=== PATIENT | female | born 1975 | race Caucasian/White ===

== ENCOUNTER 2017-01-09 14:01 | Observation (INO) ==
--- NOTE | 2017-01-09 14:47 | Emergency Department Note ---
Disposition Clinical Impression: Elevated LFTs, Pancytopenia, Alcohol abuse Pancreatitis Qualifiers: Chronicity: acute Pancreatitis type: alcohol induced Acute pancreatitis complication: unspecified Qualified Code(s): K85.20 - Alcohol induced acute pancreatitis without necrosis or infection Abdominal pain Qualifiers: Abdominal location: unspecified location Qualified Code(s): R10.9 - Unspecified abdominal pain Nausea & vomiting Qualifiers: Vomiting type: unspecified Vomiting Intractability: unspecified Qualified Code( s): R11.2 - Nausea with vomiting, unspecified Disposition: Admitted As Inpatient Condition: Good Time of Disposition: 18:19 Abdominal Pain HPI - General Chief Complaint: ED Abdominal Pain Stated Complaint: pancreatitis Time Seen by Provider: 01/09/17 14:11 Source: patient Mode of arrival: ambulatory Limitations: no limitations Nursing Notes Reviewed: Yes Vital Signs Reviewed: Yes - History of Present Illness HPI Narrative: 41-year-old female history of hepatitis C and pancreatitis resents the ED with abdominal pain. This is been ongoing for the past 3 days worse today. She describes a sharp stabbing sensation right upper quadrant diffuse doll pain in the epigastric region. Stasis feels just like her pancreatitis in the past. She reports drinking a large amount of alcohol yesterday this is what typically sets it off. Reports multiple admissions for pancreatitis in the past which leads to short periods of sobriety and then right back to drinking. She reports nausea with a mixture of dry heaving and nonbloody emesis. Also reports nonbloody diarrhea that has been ongoing for past few days. Denies any fever, cough, chest pain or shortness of breath. Dr. Deng is her primary care physician. Reports a history of appendectomy, hysterectomy and . Pt Subjective Complaint: abdominal pain Pain Scale: 9 - Related Data Home Medications Medication Instructions Recorded Confirmed Buprenorphine HCl [Subutex] 12 mg SL DAILY 07/04/15 01/09/17 Albuterol Sulfate [Albuterol 1 puff IH Q4-6H PRN 01/09/17 01/09/17 Inhaler] HydrOXYzine 10 mg PO HS 01/09/17 01/09/17 Levothyroxine [Synthroid] 125 mcg PO DAILY 01/09/17 01/09/17 Previous Rx's Medication Instructions Recorded Pantoprazole Sodium [Protonix] 20 mg PO DAILY #7 tab 12/12/15 Folic Acid 1 mg PO DAILY #15 tablet 02/08/16 Promethazine [Phenergan] 25 mg PO Q6HR PRN #16 tablet 10/06/16 Allergies Allergy/AdvReac Type Severity Reaction Status Date / Time No Known Allergies Allergy Verified 01/09/17 14:09 All systems ED: reviewed and negative except as stated. Constitutional: Denies: fever, chills Cardiovascular: Denies: chest pain Respiratory: Denies: cough, dyspnea Gastrointestinal: Reports: abdominal pain, nausea, vomiting, diarrhea. Denies: melena, hematochezia Genitourinary: Denies: urgency, dysuria Musculoskeletal: Denies: back pain Integumentary: Denies: rash, abrasion Abdominal Pain PMH - Past Medical History Medical history: Reports: thyroid disease, other Female Surgical History: Reports: appendectomy, , hysterectomy, other MANDOLIN REPAIRER history: Reports: no MANDOLIN REPAIRER history, bilateral tubal ligation Psychiatric history: Reports: other - Social History Smoking status: Current every day smoker Alcohol use: Reports: heavy, recent Drug use: Reports: none, prescription drug abuse, other Physical Exam - General Limitations: no limitations General appearance: alert, in no apparent distress - Head Head exam: atraumatic, normocephalic, normal inspection - Eye Eye exam: Present: normal appearance, PERRL, EOMI - ENT ENT exam: normal exam, normal oropharynx, mucous membranes dry - Neck Neck exam: Present: normal inspection, full ROM, trachea midline - Chest Chest inspection: Present: normal inspection, symmetric chest wall rise - Respiratory Respiratory exam: Present: normal lung sounds bilaterally. Absent: respiratory distress, wheezes - Cardiovascular Cardiovascular exam: Present: regular rate, normal rhythm, normal heart sounds. Absent: systolic murmur, diastolic murmur - Abdominal Exam Abdominal exam: Present: soft, tenderness, normal bowel sounds. Absent: Non- Tender, distention, guarding, rebound, rigidity, Mathew's sign, Rovsing's sign, tenderness at McBurney's Point Abdominal tenderness: Present: RUQ, epigastrium, diffuse - Extremities Exam Extremities exam: Present: normal inspection, full ROM, normal capillary refill. Absent: tenderness, pedal edema, calf tenderness - Back Exam Back exam: Present: normal inspection, full ROM. Absent: tenderness, CVA tenderness (R), CVA tenderness (L), vertebral tenderness - Neurological Exam Neurological exam: Present: alert, oriented X3 - Psychiatric Psychiatric exam: Present: normal affect, normal mood - Skin Skin exam: Present: warm, dry, intact, normal color Course Course Narrative: 13-year-old female history of chronic pancreatitis presents with epigastric abdominal pain. This is been going on for a few days worsen after drinking alcohol yesterday. Patients afebrile. States feels just like her pancreatitis in the past. She has mild tenderness to the epigastric and right upper quadrant. Abdomen is otherwise often nondistended. Mucosal membranes appear dry. Will work her up for pancreatitis and treat her pain and IV pain medications. - Reevaluation(s) Reevaluation #1: IV was placed with ultrasound and given 1L of fluids and 8 mg of morphine. Labs reviewed. She has pancytopenia. Her WBC is chronically low. Lipase is not impressive at 47 with her history of chronic pancreatitis. However her LFTs are extremely elevated and last time she was admitted. AST 900 AND alt 400 which is consistent with an alcohol hepatitis. She reports a history of delirium tremens on previous attempts to detox. If patient continues to have pain may require admission. Time: 16:54 Reevaluation #2: Ordered additional liter of fluid for total of 3L. After additional 6 mg Morphine pain is not well controlled. Will admit for pancytopenia, elevation of LFTs and possible pancreatitis. Patient is in agreement with plan. Time: 17:20 - Consultations Consultation #1: Spoke with BRANDON Bush, recommends that she needs evaluation with a MRCP while in the hospital Time: 18:19 Consultation #2: Spoke with on-call hospitalist brian Zuniga to admit for pancytopenia, elevated LFTs, pancreatitis, abdominal pain. No further orders at this time Time: 18:19 Vital Signs Temperature 98.4 F 01/09/17 14:04 Pulse Rate 73 01/09/17 14:04 Respiratory Rate 16 01/09/17 14:04 Blood Pressure 159/102 01/09/17 14:04 O2 Sat by Pulse Oximetry 100 01/09/17 14:04 Temperature 97.4 F L 01/09/17 20:56 Pulse Rate 65 01/09/17 20:56 Respiratory Rate 18 01/09/17 20:56 Blood Pressure 135/91 01/09/17 20:56 O2 Sat by Pulse Oximetry 95 01/09/17 20:56 Oxygen Delivery Oxygen Delivery Room Air Abdominal Pain - Medical Records Medical records reviewed: Yes I reviewed the patient's medical records. - Lab Data Lab results reviewed: Yes I reviewed the patient's lab results. Result diagrams: 01/09/17 15:20 01/09/17 15:20 Lab Results 01/09/17 01/09/17 01/09/17 Range/Units 14:30 15:20 15:20 WBC 3.3 L (4.3-11.1) K/mcL RBC 3.52 L (3.82-4.97) M/mcL Hgb 10.4 L (11.5-15.4) g/dL Hct 31.3 L (35.3-44.9) % MCV 88.9 (83.0-100.0) fL MCH 29.5 (28.0-33.3) pg MCHC 33.2 (31.6-35.5) g/dL RDW 19.9 H (11.5-14.5) % Plt Count 59 L (140-400) K/mcL MPV 9.5 (9.4-12.4) fL Immature Gran % 0.3 (0-4) % Seg Neutrophils % 62.9 % Lymphocytes % 28.0 % Monocytes % 5.5 % Eosinophils % 2.4 % Basophils % 0.9 % Neutrophils # 2.1 (1.6-8.9) K/mcL Lymphocytes # 0.9 (0.6-4.6) K/mcL Monocytes # 0.2 (0.0-1.3) K/mcL Eosinophils # 0.1 (0.0-0.6) K/mcL Basophils # 0.0 (0.0-0.2) K/mcL Platelet Estimate Decreased L (Normal) Immature Plt Fraction 4.1 (1.1-6.1) % Polychromasia 1+ A (Not Present) Poikilocytosis 1+ A (Not Present) Anisocytosis 1+ A (Not Present) Sodium 135 L (136-145) mEq/L Potassium 4.0 (3.5-4.5) mEq/L Chloride 98 (98-109) mEq/L Carbon Dioxide 27 (19-29) mEq/L BUN 6 L (7-20) mg/dL Creatinine 0.94 (0.57-1.11) mg/dL Est GFR ( Amer) > 60 (> 60) Est GFR (Non-Af Amer) > 60 (> 60) BUN/Creatinine Ratio 6 (6-26) Glucose 89 (70-99) mg/dL Calculated Osmolality 277 L (280-300) Calcium 8.6 (8.6-10.8) mg/dL Total Bilirubin 0.9 (0.2-1.2) mg/dL Direct Bilirubin 0.4 (0.0-0.5) mg/dL Indirect Bilirubin 0.5 (0.0-1.2) mg/dL AST 905 H (5-34) Units/L ALT 424 H (0-55) Units/L Alkaline Phosphatase 100 (38-126) Units/L Serum Total Protein 7.4 (6.0-8.3) g/dL Albumin 3.7 (3.5-5.0) g/dL Globulin 3.7 H (2.4-3.5) g/dL Albumin/Globulin Ratio 1.0 L (1.1-2.2) Amylase 47 (25-125) Units/L Lipase 47 (8-78) Units/L Urine Color Yellow (Yellow) Urine Clarity Clear (Clear) Urine pH 6.5 (5.0-8.0) pH Units Ur Specific Britt 1.005 L (1.010-1.025) Urine Protein Negative (Neg-Trace) mg/dL Urine Glucose (UA) Normal (Normal) mg/dL Urine Ketones Negative (Negative) mg/dL Urine Blood Negative (Negative) Urine Nitrite Negative (Negative) Urine Bilirubin Negative (Negative) Urine Urobilinogen Normal (Normal) mg/dL Ur Leukocyte Esterase Negative (Negative) Ur Culture Indicated? NO (NO) - Radiology Data Radiology results reviewed: Yes I reviewed the patient's radiology results. Chest X-Ray 01/09/17 15:20 IMPRESSION: No acute cardiopulmonary process. D/ / 01/09/2017 15:42:20 Leola Esposito MD / padma Interpreting Provider: Leola Esposito MD
[2017-01-09 15:28] LABS: Hematocrit 31.3 % (35.3-44.9); Hemoglobin 10.4 g/dL (11.5-15.4); Immature Platelets 4.1 % (1.1-6.1); Mean Corpuscular HGB Conc 33.2 g/dL (31.6-35.5); Mean Corpuscular Hemoglobin 29.5 pg (28.0-33.3); Mean Corpuscular Volume 88.9 fL (83.0-100.0); Mean Platelet Volume 9.5 fL (9.4-12.4); Red Blood Count 3.52 M/mcL (3.82-4.97); Red Cell Distribution Width 19.9 % (11.5-14.5); Segmented Neutrophils % 62.9 %
[2017-01-09 15:29] LABS: Basophils % 0.9 %; Eosinophils # 0.1 K/mcL (0.0-0.6); Eosinophils % 2.4 %; Immature Granulocytes % 0.3 % (0-4); Lymphocytes # 0.9 K/mcL (0.6-4.6); Monocytes # 0.2 K/mcL (0.0-1.3); Monocytes % 5.5 %; Neutrophils # 2.1 K/mcL (1.6-8.9)
[2017-01-09 15:31] LABS: Platelet Count 59 K/mcL (140-400)
[2017-01-09] MEDS ORDERED: 0.9 % Sodium Chloride 1,000 ML IVC ONE ×3 (15:35→17:11)
[2017-01-09] MEDS ORDERED: *HR* Morphine 2 MG/ML SYRINGE IVP ONE (15:35)
[2017-01-09] MEDS ORDERED: Ondansetron 4 MG/2 ML VIAL IV ONE (15:43)
[2017-01-09 15:44] LABS: Alanine Aminotransferase 424 Units/L (0-55); Albumin 3.7 g/dL (3.5-5.0); Alkaline Phosphatase 100 Units/L (38-126); Amylase 47 Units/L (25-125); Aspartate Amino Transferase 905 Units/L (5-34); BUN/Creatinine Ratio 6 (6-26); Bilirubin,Direct 0.4 mg/dL (0.0-0.5); Bilirubin,Indirect 0.5 mg/dL (0.0-1.2); Bilirubin,Total 0.9 mg/dL (0.2-1.2); Blood Urea Nitrogen 6 mg/dL (7-20); Calcium 8.6 mg/dL (8.6-10.8); Carbon Dioxide 27 mEq/L (19-29); Chloride 98 mEq/L (98-109); Globulin 3.7 g/dL (2.4-3.5); Glucose 89 mg/dL (70-99); Lipase 47 Units/L (8-78); Osmolality,Calculated 277 (280-300); Sodium 135 mEq/L (136-145); Total Protein 7.4 g/dL (6.0-8.3); eGFR For African Americans > 60 (> 60); eGFR For Non-African Americans > 60 (> 60)
[2017-01-09 15:57] LABS: Anisocytosis 1+ (Not Present); Platelet Estimate Decreased (Normal); Poikilocytosis 1+ (Not Present); Polychromasia 1+ (Not Present)
--- NOTE | 2017-01-09 17:19 | Emergency Department Note ---
START Narrative - START START: For this encounter, I have reviewed the resident, RISK MODELER, or PA documentation, treatment plan, and medical decision making; and I have had face to face time with this patient. 41-year-old female presents with concerns of epigastric abdominal pain. Patient states that she has epigastric pain and right upper quadrant pain similar to her previous episodes of pancreatitis. Patient states that she feels lightheaded and has a "dry mouth" and has been unable to eat or drink due to pain and nausea. Patient states she has a history of delirium tremens on previous attempts to detox. On physical exam the patient has tenderness to palpation of the epigastrium in the right upper quadrant without evidence of rigidity, guarding, or rebound. IV was placed and patient was given pain medication with morphine and IV fluids. Laboratory evaluation reveals pancytopenia as well as elevation of her LFTs. Patient does not have hyperbilirubinemia however. Patient has continued pain despite treatment with morphine and IV fluids. Patient will be admitted to the hospital for possible pancreatitis as well as pancytopenia with elevated LFTs. I spoke with Dr. Siegel who recommended evaluation with MRCP while in the hospital. Patient admitted to the hospitalist for continued care.
[2017-01-09] MEDS ORDERED: *HR* Morphine 2 MG/ML SYRINGE IV ONE (18:09)
[2017-01-09 18:44] LABS: Bilirubin,Urine Negative (Negative); Blood,Urine Negative (Negative); Clarity,Urine Clear (Clear); Color,Urine Yellow (Yellow); Glucose,Urine (UA) Normal (Normal); Ketones,Urine Negative (Negative); Leukocyte Esterase,Urine Negative (Negative); Nitrite,Urine Negative (Negative); PH,Urine 6.5 pH Units (5.0-8.0); Protein,Urine Negative (Neg-Trace); Specific Gravity,Urine 1.005 (1.010-1.025); Urobilinogen,Urine Normal (Normal)
--- NOTE | 2017-01-09 20:48 | Internal Med History&Physical ---
<Kvng Mayes - Last Filed: 01/09/17 23:33> Date of Encounter: 01/09/17 Time of Encounter: 20:15 Assessment and Plan (1) Acute on chronic pancreatitis Current visit: Yes Status: Acute Patient has history of recurrent pancreatitis, current episode has been progressive over the past week or so. Complaints of nauseous and vomiting, and severe epigastric pain (that is similar to previous episodes of pancreatitis) are concerning for another episode of pancreatitis, though no elevation in amylase or lipase is seen. This current episode is likely due to chronic alcohol usage, but she does report viral infection recently. By [place] criteria patient is having mild case of pancreatitis. We will begin early enteral feeding and start patient on clear liquid diet Patient received 3 L fluid in the emergency room, will continue with normal saline at 200 mL an hour We will start Ativan based CIWA protocol Continue home hydroxyzine for anxiety 4 mg morphine every 4 hours as needed for patient pain IV multivitamins Dr. Siegel was spoken to in the ER who recommended patient undergo MRCP, patient refused MRCP due to anxiety, patient stated willingness to try MRCP again of anxiety can be better controlled prior to study. MRCP planned tomorrow Consultation to gastroenterology for assistance and continued care of her chronic pancreatitis as well as assessment and treatment of patient hepatitis C Continuous pulse oximetry and telemetry (2) Elevated LFTs Current visit: Yes Status: Acute Patient has transaminitis with a ratio of AST/ALT of roughly 2-1, strongly suggestive of alcoholic hepatitis. The patient also has history of hepatitis C , could be contributing to patient transaminitis. Plan as above (3) Pancytopenia Current visit: Yes Status: Acute Patient pancytopenia likely due to chronic liver disease given hepatitis C and continued alcohol usage. We will continue to monitor with daily CBC We will avoid heparin given low platelet count and likely sequestration of remaining platelets (4) Alcohol abuse Current visit: No Status: Acute Patient currently drinking about 3-4 alcoholic malt beverages per day (roughly 14% etoh content). She has periodic episodes of sobriety and then drinking again, she states that she is in a program currently, though has difficulty in quitting. She is interested in cessation of alcohol usage. She does have history of delirium tremens. We will start CIWA protocol We will consult social work to ascertain any programs persistent available for her (5) Hepatitis C Current visit: No Status: Chronic Patient previously diagnosed with hepatitis C. She denies ever having received treatment. And is interested in pursuing further treatment. We will consult gastroenterology for assistance in treating patient hepatitis Qualifiers: Viral hepatitis chronicity: chronic Hepatic coma status: without hepatic coma Qualified Code(s): B18.2 - Chronic viral hepatitis C (6) DVT prophylaxis Current visit: No Status: Acute We will hold heparin due to concerns of patient thrombocytopenia is likely sequestration of platelets Start intermittent pneumatic compression devices (7) Hypothyroid Current visit: No Status: Chronic Patient hypothyroid due to undergoing previous ablation in order to treat hyperthyroidism. Continue home levothyroxine Qualifiers: Hypothyroidism type: postoperative Qualified Code(s): E89.0 - Postprocedural hypothyroidism Internal Medicine - H&P: HPI Chief complaint: Abdominal Pain and Nausea Admitted From: Home Plans for Post Hospital Care: Home History of present illness: Ms. Henry is a 41 year old female with prior medical history significant for hepatitis C, alcohol abuse, prior pancreatitis, and thyroid disease. She presents to [facility] today after worsening of her epigastric pain. She states it is been progressively worsening over the past week, beginning with bloating and queasiness and progressing into severe epigastric tenderness and nausea/ vomiting. She states that prior to her epigastric discomfort, she had a cold. She describes epigastric pain as a 6-7 out of 10 in severity, after receiving morphine in the emergency department, but prior to that it was 9-10 out of 10 in severity. She describes it as an aching character, without any specific identifiable cause of worsening or improvement. She states the pain feels like prior episodes of pancreatitis. She also describes a sharp pain located in her lower ribs, it feels like someone is stabbing her with a knife, she states she has had this multiple times before and that it comes and goes without any identifiable precipitating factor. She also complains of nausea/vomiting, and only vomits when she feels like she has something to throw up, she denies hematemesis. She states she has been having diarrhea, but denies hematochezia or melena. She denies chest pain, denies shortness of breath, denies fevers currently, reports unusual bruising. Past Med Surg Social Fam HX - Past Medical History Medical history: thyroid disease, other Psychiatric history: anxiety, other - Past Surgical History Surgical History: appendectomy, hysterectomy - Social History Smoking Status: Current every day smoker Packs per day: .75 Smokeless Tobacco Status: Yes Alcohol use: heavy, recent Drug use: none, prescription drug abuse, other - Family History Mother Living Status: Still Living Hx Family Cardiac Disorders: No Father Living Status: Hx Family Cardiac Disorders: Yes Brother Living Status: Still Living Hx Family Cardiac Disorders: No Internal Medicine - H&P: Meds Folic Acid 1 mg PO DAILY #15 tablet 02/08/16 [Rx] Albuterol Sulfate [Albuterol Inhaler] 1 puff IH Q4-6H PRN 01/09/17 [History] Levothyroxine [Synthroid] 125 mcg PO DAILY 01/09/17 [History] Buprenorphine HCl/Naloxone HCl [Suboxone 8 mg-2 mg Sl Film] 1.75 film SL DAILY 01/10/17 [History] Hydroxyzine HCl [Hydroxyzine HCl] 25 mg PO TID 01/10/17 [History] Pantoprazole Sodium [Protonix] 40 mg PO DAILY 01/10/17 [History] Allergies No Known Allergies Allergy (Verified 01/09/17 14:09) - Constitutional Constitutional: anorexia, no chills, no fever(s), no weakness - EENT Nose, mouth and throat: dry mouth, hoarseness, sore throat, no mouth pain, no sinus pressure - Cardiovascular Cardiovascular ROS IM: lightheadedness, no chest pain, no diaphoresis, no dyspnea, no dyspnea on exertion, no orthopnea, no palpitations - Respiratory Respiratory: no cough, no dyspnea, no hemoptysis, no dyspnea on exertion, no wheezing, no pain on inspiration, no pain with cough - Gastrointestinal Gastrointestinal: as per HPI, abdominal pain, diarrhea, nausea, vomiting, no coffee ground emesis, no constipation, no hematemesis, no hematochezia, no melena - Genitourinary Genitourinary: no dysuria, no hematuria - Musculoskeletal Musculoskeletal ROS IM: back pain, no numbness, no tingling - Integumentary Integumentary IM: unusual bruising, no pruritus, no rash, no jaundice - Neurological Neurological ROS: no confusion, no convulsions, no focal weakness, no numbness, no tingling, no tremor(s) - Hematologic/Lymphatic Hematologic/Lymphatic: easy bruising - Constitutional Vitals: Temp Pulse Resp BP Pulse Ox 98.4 F 76 18 139/83 100 01/09/17 14:04 01/09/17 18:32 01/09/17 19:08 01/09/17 19:08 01/09/17 18:32 Exam: General: Cooperative, pleasant, mild distress, alert and oriented 3, answers questions appropriately Head: Normocephalic, atraumatic Eye: Conjunctiva pink, sclera anicteric, EOMI, PERRL Neck: Supple, trachea midline, mucosa moist Respiratory: No accessory muscle usage, clear to auscultation bilaterally, no wheezes/rhonchi/rales appreciated Cardiovascular: Regular rate and rhythm, S1 and S2 present, no murmurs/rubs/ gallops/clicks appreciated GI/abdominal: Nondistended, tenderness to palpation in epigastric and right upper quadrant, no Mathew sign, tenderness to palpation in right lower ribs and flank region, soft, hypoactive bowel sounds, no peritoneal signs Extremities: No calf tenderness, noncyanotic, 1+ tibial pitting edema noted, warm, lower extremity pulses palpable and symmetrical Neurological: Alert and oriented 3, no facial droop, no focal deficits Skin: Dry, intact, normal color, no jaundice appreciated Internal Med - H&P Results - Labs CBC & Chem 7: 01/09/17 15:20 01/09/17 15:20 <Augustina Hagen - Last Filed: 01/12/17 12:12> Internal Medicine - H&P: HPI History of present illness: Ms. Henry is a 41 year old female All Systems PM: A 10-system review of systems was performed and is negative for pertinent findings except as documented above in the HPI. - Constitutional Vitals: Temp Pulse Resp BP Pulse Ox 98.3 F 70 15 128/83 97 01/12/17 10:55 01/12/17 10:55 01/12/17 10:55 01/12/17 10:55 01/12/17 10:55 Internal Med - H&P Results - Labs CBC & Chem 7: 01/11/17 05:31 01/11/17 05:31 - Impressions ITS Impressions Abdomen MRI 01/11/17 13:55 IMPRESSION: 1. Edematous wall thickening in the ascending and transverse colon, suggesting colitis. Recommend further evaluation with a contrast-enhanced CT. 2. Biliary sludge, cholelithiasis, and mild gallbladder distention. Trace pericholecystic fluid is felt most likely to be related to the colonic finding. Consider further characterization with sonography if there are clinical findings of cholecystitis. 3. Incidental findings as above. D/ / Arturo Trinidad MD / Arturo Trinidad MD Interpreting Provider: Arturo Trinidad MD Liver Ultrasound 01/11/17 20:00 IMPRESSION: 1. No focal abnormality involving the liver. 2. Biliary sludge within the gallbladder but no wall thickening pericholecystic fluid or sonographic Mathew's sign. D/ / Elroy Motley / Elroy Motley Interpreting Provider: Elroy Motley - Attending Attestation Patient seen and examined, agree with assessment and plan of resident Ta Mayes. Patient with acute on chronic pancreatitis in setting of heavy alcohol use and hepatitis C cirrhosis. GI was consulted from ER and recommended MRCP which patient was unable to tolerate secondary to anxiety - she agrees to try again in AM with anxiolytic medications. Appreciate GI assistance with possible treatment for hep C. [facility] protocol in place.
[2017-01-09] MEDS ORDERED: Naloxone 0.4 MG/ML INJ IVP PRN ×2 (20:49)
[2017-01-09] MEDS ORDERED: Acetaminophen 325 MG TABLET PO PRN (20:49)
[2017-01-09] MEDS ORDERED: *HR* HYDROmorphone (PF) 1 MG/ML SYRINGE IVP PRN ×2 (20:49)
[2017-01-09] MEDS ORDERED: *HR* Morphine 2 MG/ML SYRINGE IVP PRN (20:49)
[2017-01-09] MEDS ORDERED: 0.9 % Sodium Chloride 1,000 ML IVC SCH ×2 (21:00→23:00)
[2017-01-09] MEDS ORDERED: *HR* LORazepam 2 MG/ML VIAL IVP PRN ×3 (21:04)
[2017-01-09] MEDS: Nicotine 14 MG PATCH.TD24 TD SCH (21:50)
[2017-01-09 22:06] LABS: INR 1.5; Prothrombin Time 16.3 Seconds (9.4-12.1)
[2017-01-09 22:08] LABS: Activated Partial Thrombo Time 31.6 Seconds (26.0-36.0)
[2017-01-09] MEDS: Thiamine (B-1) 100 MG, Folic Acid 1 MG, MVI, adult with vitamin K 10 ML in 0.9 % Sodi... IV SCH (22:11)
[2017-01-09 22:18] LABS: Chol/HDL Ratio 2.4 (0-4.9); Magnesium 1.4 mg/dL (1.6-2.6); Phosphorous 2.8 mg/dL (2.3-4.7)
[2017-01-09] MEDS: 0.9 % Sodium Chloride 1,000 ML IVC SCH (22:25)
[2017-01-10] MEDS: Ondansetron 4 MG/2 ML VIAL IVP PRN ×2 (00:59→18:10)
[2017-01-10] MEDS: *HR* Morphine 2 MG/ML SYRINGE IVP PRN ×6 (01:01→22:27)
[2017-01-10] MEDS: 0.9 % Sodium Chloride 1,000 ML IVC SCH ×3 (02:03→18:04)
[2017-01-10] MEDS ORDERED: 0.9 % Sodium Chloride 1,000 ML IVC SCH (07:00)
[2017-01-10] MEDS: Nicotine 14 MG PATCH.TD24 TD SCH (07:49)
[2017-01-10] MEDS: Pantoprazole 40 MG VIAL IVP SCH (07:49)
[2017-01-10] MEDS: Thiamine (B-1) 100 MG, Folic Acid 1 MG, MVI, adult with vitamin K 10 ML in 0.9 % Sodi... IV SCH (08:13)
[2017-01-10] MEDS: *HR* LORazepam 1 MG TABLET PO SCH ×2 (09:32→20:57)
--- NOTE | 2017-01-10 13:00 | Electrocardiograph Report ---
[address] [place] [address] Test Date: 2017-01-09 Pat Name: Danyell Henry Department: 105 Room: 3A24 Gender: F Ppa Teacher: : 1975 Requested By: Mushtaq Olguin Order Number: [id number] Reading MD: Stacy Ward Measurements Intervals [place] Rate: 63 P: AL: 0 QRS: 7 QRSD: 86 T: 23 QT: 396 QTc: 404 Interpretive Statements NORMAL SINUS RHYTHM LOW VOLTAGE Electronically Signed On 01-10-2017 12:59:04 EDT by Stacy Ward
--- NOTE | 2017-01-10 17:12 | Internal Med Progress Note ---
Date of Encounter: 01/10/17 Time of Encounter: 14:30 - Assessment and plan (1) Abdominal pain Current Visit: Yes Status: Acute Assessment and plan: plan as below. secondary to alcoholic pancreatitis Qualifiers: Abdominal location: epigastric Qualified Code(s): R10.13 - Epigastric pain (2) Acute on chronic pancreatitis Current Visit: Yes Status: Acute Assessment and plan: Patient with history of multiple prior episodes of hepatitis due to alcohol abuse. Patient continues to drink 3-4 alcoholic malt beverages per day (~ 14% etoh content). This time she presents with nausea, vomiting and severe epigastric pain. Clinically slowly improving but patient still not tolerating oral diet well. Continue clear liquids and conservative management including IV fluids, clearly liquids, and Iv morphine for pain (patient received 4 mg of IV morphine twice today). (3) Alcohol abuse Current Visit: Yes Status: Acute Assessment and plan: Patient was counseled to quit drinking alcohol. She understands and states she is trying in however it is difficult. (4) Alcoholic hepatitis Current Visit: No Status: Acute Assessment and plan: Elevated AST at 905 and ALT at 424. 2:1 ratio likely suggestive of alcoholic hepatitis. Continue supportive therapy with IV fluids, alcohol cessation and close monitoring. Qualifiers: Ascites presence: without ascites Qualified Code(s): K70.10 - Alcoholic hepatitis without ascites (5) Hypothyroid Current Visit: No Status: Chronic Assessment and plan: Continue home dose of levothyroxine. Qualifiers: Hypothyroidism type: postoperative Qualified Code(s): E89.0 - Postprocedural hypothyroidism (6) Pancytopenia Current Visit: Yes Status: Chronic Assessment and plan: Chronic pancytopenia however platelets are lower than usual. This is likely secondary to chronic liver disease and suspected liver cirrhosis. No signs of bleeding. Close monitoring. (7) Hepatitis C Current Visit: No Status: Chronic Assessment and plan: f/u as OUTPATIENT. Qualifiers: Viral hepatitis chronicity: chronic Hepatic coma status: without hepatic coma Qualified Code(s): B18.2 - Chronic viral hepatitis C - Subjective Interval history: Her abdominal pain is moderate. She could not drink liquids this morning because she felt full. No nausea. No vomiting. - Constitutional Vitals: Temp Pulse Resp BP Pulse Ox 98.0 F 63 16 132/76 98 01/10/17 15:28 01/10/17 15:28 01/10/17 15:28 01/10/17 15:28 01/10/17 15:28 General appearance: Present: cooperative, A&O X 3, morbidly obese, pleasant, no acute distress, answers questions appropriately - Eye Eye exam: Present: PERRL, sclera anicteric - Neck Neck exam general surgery: Present: supple, trachea midline. Absent: lymphadenopathy - Respiratory Respiratory exam: Present: CTAB - Cardiovascular Cardiovascular exam: Present: RRR - GI/Abdominal GI/Abdominal exam: Present: soft, tenderness Additional comments: no abdominal distension. diffuse tenderness. bowel sounds are present. - Extremities Exam Extremities exam: Absent: joint swelling, pedal edema - Back Exam Back exam: Absent: CVA tenderness (L), CVA tenderness (R) - Neurological Exam Neurological exam: Present: alert, oriented X3, no focal deficits, strengths equal and symetr throughout. Absent: facial droop, speech deficit - Skin Skin exam: Absent: rash Internal Medicine: Result - Labs CBC & Chem 7: 01/09/17 15:20 01/09/17 15:20 Labs: BMP 01/09/17 21:49 Calcium 7.4 L - ABG Interpretation ABG results: PT/INR, D-dimer PT 16.3 Seconds (9.4-12.1) H 01/09/17 21:49 Consult Discharge Plan - Plan Referrals: Silas Deng MD [Primary Care Provider] -
[2017-01-10] MEDS ORDERED: Magnesium Sulfate 1 GM in D5% in Water 100 ML IVPB ONE (17:25)
[2017-01-11] MEDS: *HR* Morphine 2 MG/ML SYRINGE IVP PRN ×5 (02:40→19:55)
[2017-01-11 06:09] LABS: Basophils % 0.7 %; Hemoglobin 9.6 g/dL (11.5-15.4); Red Cell Distribution Width 20.9 % (11.5-14.5)
[2017-01-11 06:10] LABS: Eosinophils # 0.2 K/mcL (0.0-0.6); Eosinophils % 4.6 %; Immature Granulocytes % 1.1 % (0-4); Immature Platelets 7.2 % (1.1-6.1); Lymphocytes # 1.5 K/mcL (0.6-4.6); Lymphocytes % 34.9 %; Mean Corpuscular Volume 90.6 fL (83.0-100.0); Mean Platelet Volume 11.8 fL (9.4-12.4); Monocytes # 0.3 K/mcL (0.0-1.3); Monocytes % 6.9 %; Neutrophils # 2.3 K/mcL (1.6-8.9); Red Blood Count 3.31 M/mcL (3.82-4.97); Segmented Neutrophils % 51.8 %
[2017-01-11 06:13] LABS: Platelet Count 47 K/mcL (140-400)
[2017-01-11 06:29] LABS: Alanine Aminotransferase 192 Units/L (0-55); Albumin 3.1 g/dL (3.5-5.0); Albumin/Globulin Ratio 0.9 (1.1-2.2); Alkaline Phosphatase 90 Units/L (38-126); Aspartate Amino Transferase 273 Units/L (5-34); BUN/Creatinine Ratio 5 (6-26); Bilirubin,Direct 0.3 mg/dL (0.0-0.5); Bilirubin,Indirect 0.2 mg/dL (0.0-1.2); Bilirubin,Total 0.5 mg/dL (0.2-1.2); Calcium 7.3 mg/dL (8.6-10.8); Carbon Dioxide 20 mEq/L (19-29); Chloride 109 mEq/L (98-109); Globulin 3.4 g/dL (2.4-3.5); Glucose 90 mg/dL (70-99); Magnesium 1.9 mg/dL (1.6-2.6); Osmolality,Calculated 282 (280-300); Potassium 4.3 mEq/L (3.5-4.5); Sodium 138 mEq/L (136-145); Total Protein 6.5 g/dL (6.0-8.3); eGFR For African Americans > 60 (> 60); eGFR For Non-African Americans > 60 (> 60)
[2017-01-11] MEDS: Ondansetron 4 MG/2 ML VIAL IVP PRN ×2 (06:33→19:52)
[2017-01-11 06:35] LABS: Blood Urea Nitrogen 4 mg/dL (7-20)
[2017-01-11 06:45] LABS: Platelet Estimate Decreased (Normal)
[2017-01-11 06:46] LABS: Anisocytosis 1+ (Not Present); Polychromasia 1+ (Not Present)
[2017-01-11 06:47] LABS: Tear Drop Cells 1+ (Not Present)
[2017-01-11] MEDS: Nicotine 14 MG PATCH.TD24 TD SCH (08:53)
[2017-01-11] MEDS: *HR* LORazepam 1 MG TABLET PO SCH ×2 (08:53→21:34)
[2017-01-11] MEDS: Pantoprazole 40 MG VIAL IVP SCH (08:53)
[2017-01-11] MEDS: Thiamine (B-1) 100 MG, Folic Acid 1 MG, MVI, adult with vitamin K 10 ML in 0.9 % Sodi... IV SCH (09:02)
[2017-01-11] MEDS: 0.9 % Sodium Chloride 1,000 ML IVC SCH (10:35)
--- NOTE | 2017-01-11 11:39 | Gastroenterology Consult Note ---
<Arturo Middleton Candice - Last Filed: 01/11/17 11:37> Date of Encounter: 01/11/17 Time of Encounter: 11:15 - Assessment and plan (1) Hepatitis C Current Visit: No Status: Chronic Assessment and plan: Hep C confirmed 02/07/2016 with genotype 1A or 1B. Pt interested in treatment. Pt must be drug and alcohol free to qualify for treatment. Qualifiers: Viral hepatitis chronicity: chronic Hepatic coma status: without hepatic coma Qualified Code(s): B18.2 - Chronic viral hepatitis C (2) Anemia Current Visit: No Status: Chronic Assessment and plan: Hgb 10.4 on admission, and today 9.6. Continue to monitor CBC and transfuse PRBC as needed. Likely secondary to cirrhosis. Qualifiers: Anemia type: unspecified type Qualified Code(s): D64.9 - Anemia, unspecified (3) Thrombocytopenia Current Visit: No Status: Acute Assessment and plan: Platelets low since 2014. Likely secondary to alcoholic cirrhosis. (4) Abdominal pain Current Visit: No Status: Acute Assessment and plan: Pt with history of pancreatitis. On admission Lipase 47. Pt continues to drink 3 -4 alcoholic malt beverages per day. Pain has improved since admission. Will await MRCP results. Qualifiers: Abdominal location: epigastric Qualified Code(s): R10.13 - Epigastric pain (5) Alcohol abuse Current Visit: No Status: Acute Assessment and plan: Avoid all alcohol. (6) Hepatic steatosis Current Visit: No Status: Acute Assessment and plan: Complete liver workup. (7) Elevated LFTs Current Visit: No Status: Acute Assessment and plan: Await MRCP. - Time Spent With Patient Total time spent is greater than 50% in coordination of care (as documented) at patient's floor/unit and/or counseling patient: GI History of Present Illness - Data of Consult Patient: new to practice Consult date: 01/11/17 Requesting Physician: Bibi Nassar - Consult Narrative Reason for consult: chronic pancreatitis, hepatitis C, ETOH abuse History of present illness: Ms. Henry is a 41 year old female with PMHx of hepatitis C, alcohol abuse, prior pancreatitis, and thyroid disease who presented to the ED with worsening epigastric pain which has been worsening over the past week. She also complains of nausea and vomiting, but denies hematemesis. She states she has been having diarrhea, with no melena or hematochezia. She has a history of having 3-4 alcoholic drinks per day, and has a history of DT. She was started on CIWA protocol. On admission she was pancytopenic with WBC 3.3, Hgb 10.4, and Plt 59. MRCP was ordered, but was unable to be completed due to patient anxiety. Fatty liver was noted on gallbladder ultrasound 02/04/2016, no cirrhosis noted. Procedures: None NSAIDs: None Anticoagulation: None Past Med Surg Social Fam HX - Past Medical History Medical history: thyroid disease, other Psychiatric history: anxiety, other - Past Surgical History Surgical History: appendectomy, hysterectomy - Social History Smoking Status: Current every day smoker Packs per day: .75 Smokeless Tobacco Status: Yes Alcohol use: heavy, recent Drug use: none, prescription drug abuse, other - Family History Mother Living Status: Still Living Hx Family Cardiac Disorders: No Father Living Status: Hx Family Cardiac Disorders: Yes Brother Living Status: Still Living Hx Family Cardiac Disorders: No - Gastrointestinal Gastrointestinal: Present: as per HPI - Constitutional Constitutional: as per HPI - EENT Eyes: as per HPI Ears: Present: as per HPI Nose, mouth and throat: Present: as per HPI - Cardiovascular Cardiovascular ROS: Present: as per HPI - Respiratory Respiratory IM: Present: as per HPI - Genitourinary Genitourinary: Absent: change in color, Urinary frequency - Neurological ROS Neurological GI: Present: as per HPI - Hematologic/Lymphatic Hematologic/Lymphatic pediatric: Present: as per HPI - Musculoskeletal Musculoskeletal ROS GI: Present: as per HPI - Integumentary Integumentary GI: Present: as per HPI - Psychiatric ROS Psychiatric GI: Present: as per HPI - Endocrine Endocrine IM: Present: as per HPI - Constitutional Vitals: Temp Pulse Resp BP Pulse Ox 98.4 F 76 14 115/81 96 01/11/17 11:02 01/11/17 11:02 01/11/17 11:02 01/11/17 11:02 01/11/17 11:02 General appearance: Present: cooperative, A&O X 3, no acute distress, answers questions appropriately - Head Head exam: Present: atraumatic, normocephalic - Eye Eye exam: Present: normal appearance, sclera anicteric - ENT ENT exam: Present: mucous membranes dry - Neck Neck exam general surgery: Present: normal inspection, trachea midline - Respiratory Respiratory exam: Present: CTAB. Absent: rales, rhonchi - Cardiovascular Cardiovascular exam: Present: RRR, +S1, +S2 - GI/Abdominal GI/Abdominal exam: Present: soft, tenderness (epigastric), no peritoneal signs. Absent: distended, firm, guarding - Rectal Rectal exam: Present: deferred - Extremities Exam Extremities exam: Present: warm - Neurological Exam Neurological exam: Present: no focal deficits - Psychiatric Psychiatric exam: Present: normal affect, normal mood - Skin Skin exam: Present: dry, intact, normal color, warm Results - Labs CBC & Chem 7: 01/11/17 05:31 01/11/17 05:31 Labs: Last Result Calcium 7.3 mg/dL (8.6-10.8) L 01/11/17 05:31 Triglycerides 165 mg/dL (< 150) H 01/09/17 21:49 Entire Visit Hgb 9.6 g/dL (11.5-15.4) L 01/11/17 05:31 Hct 30.0 % (35.3-44.9) L 01/11/17 05:31 PT 16.3 Seconds (9.4-12.1) H 01/09/17 21:49 Total Bilirubin 0.5 mg/dL (0.2-1.2) 01/11/17 05:31 AST 273 Units/L (5-34) H 01/11/17 05:31 ALT 192 Units/L (0-55) H 01/11/17 05:31 Amylase 47 Units/L (25-125) 01/09/17 15:20 Lipase 47 Units/L (8-78) 01/09/17 15:20 - ABG ABG results: PT/INR, D-dimer PT 16.3 Seconds (9.4-12.1) H 01/09/17 21:49 Consult Discharge Plan - Plan Referrals: Silas Deng MD [Primary Care Provider] - 01/20/17 1:30 pm <Lazarus Siegel - Last Filed: 01/11/17 20:33> Time of Encounter: 14:00 - Time Spent With Patient Total time spent is greater than 50% in coordination of care (as documented) at patient's floor/unit and/or counseling patient: GI History of Present Illness - Data of Consult Requesting Physician: Bibi Nassar - Consult Narrative History of present illness: Ms. Henry is a 41 year old female - Constitutional Vitals: Temp Pulse Resp BP Pulse Ox 98.5 F 71 14 148/91 98 01/11/17 20:16 01/11/17 20:16 01/11/17 20:16 01/11/17 20:16 01/11/17 20:16 Results - Labs CBC & Chem 7: 01/11/17 05:31 01/11/17 05:31 Labs: Last Result Calcium 7.3 mg/dL (8.6-10.8) L 01/11/17 05:31 Ferritin 250 ng/ml (5-204) H 01/11/17 05:31 Triglycerides 165 mg/dL (< 150) H 01/09/17 21:49 Entire Visit Hgb 9.6 g/dL (11.5-15.4) L 01/11/17 05:31 Hct 30.0 % (35.3-44.9) L 01/11/17 05:31 PT 13.3 Seconds (9.4-12.1) H 01/11/17 15:30 Ferritin 250 ng/ml (5-204) H 01/11/17 05:31 Total Bilirubin 0.5 mg/dL (0.2-1.2) 01/11/17 05:31 AST 273 Units/L (5-34) H 01/11/17 05:31 ALT 192 Units/L (0-55) H 01/11/17 05:31 Amylase 47 Units/L (25-125) 01/09/17 15:20 Lipase 47 Units/L (8-78) 01/09/17 15:20 - ABG ABG results: PT/INR, D-dimer PT 13.3 Seconds (9.4-12.1) H 01/11/17 15:30 - Impressions Impressions Abdomen MRI 01/11/17 13:55 IMPRESSION: 1. Edematous wall thickening in the ascending and transverse colon, suggesting colitis. Recommend further evaluation with a contrast-enhanced CT. 2. Biliary sludge, cholelithiasis, and mild gallbladder distention. Trace pericholecystic fluid is felt most likely to be related to the colonic finding. Consider further characterization with sonography if there are clinical findings of cholecystitis. 3. Incidental findings as above. D/ / Arturo Trinidad MD / Arturo Trinidad MD Interpreting Provider: Arturo Trinidad MD - Attending Attestation I examined this patient and my medical decision-making was reviewed with the [employer]/PA/Advanced Practice Nurse/Resident Physician. I agree with the documented findings, disposition and treatment plan as described except to the extent set forth below.
[2017-01-11 12:35] LABS: Ferritin 250 ng/ml (5-204)
[2017-01-11] MEDS ORDERED: diazePAM 5 MG TABLET PO ONE (15:45)
[2017-01-11 16:14] LABS: INR 1.2; Prothrombin Time 13.3 Seconds (9.4-12.1)
[2017-01-11 16:16] LABS: Activated Partial Thrombo Time 32.7 Seconds (26.0-36.0)
--- NOTE | 2017-01-11 16:19 | Internal Med Progress Note ---
Date of Encounter: 01/11/17 Time of Encounter: 11:15 - Assessment and plan (1) Abdominal pain Current Visit: Yes Status: Acute Assessment and plan: plan as below. secondary to alcoholic pancreatitis Qualifiers: Abdominal location: epigastric Qualified Code(s): R10.13 - Epigastric pain (2) Acute on chronic pancreatitis Current Visit: Yes Status: Acute Assessment and plan: Patient with history of multiple prior episodes of hepatitis due to alcohol abuse. Patient continues to drink 3-4 alcoholic malt beverages per day (~ 14% etoh content). This time she presents with nausea, vomiting and severe epigastric pain. Clinically slowly improving but patient still not tolerating oral diet well. Continue conservative management including IV fluids, clearly liquids, and Iv morphine for pain (patient received 4 mg of IV morphine twice today). Appreciate Gi input: MRCP today. (3) Alcohol abuse Current Visit: Yes Status: Acute Assessment and plan: Patient was counseled to quit drinking alcohol. She understands and states she is trying in however it is difficult. (4) Alcoholic hepatitis Current Visit: No Status: Acute Assessment and plan: Elevated AST at 905 and ALT at 424. 2:1 ratio likely suggestive of alcoholic hepatitis. Continue supportive therapy with IV fluids, alcohol cessation and close monitoring. Qualifiers: Ascites presence: without ascites Qualified Code(s): K70.10 - Alcoholic hepatitis without ascites (5) Hypothyroid Current Visit: No Status: Chronic Assessment and plan: Continue home dose of levothyroxine. Qualifiers: Hypothyroidism type: postoperative Qualified Code(s): E89.0 - Postprocedural hypothyroidism (6) Pancytopenia Current Visit: Yes Status: Chronic Assessment and plan: Chronic pancytopenia however platelets are lower than usual. This is likely secondary to chronic liver disease and suspected liver cirrhosis. No signs of bleeding. Close monitoring. (7) Hepatitis C Current Visit: No Status: Chronic Assessment and plan: f/u as OUTPATIENT. Qualifiers: Viral hepatitis chronicity: chronic Hepatic coma status: without hepatic coma Qualified Code(s): B18.2 - Chronic viral hepatitis C - Subjective Interval history: Her abdominal pain is getting better but still there. She vomited once this morning. - Constitutional Vitals: Temp Pulse Resp BP Pulse Ox 98.4 F 76 14 115/81 96 01/11/17 11:02 01/11/17 11:02 01/11/17 11:02 01/11/17 11:02 01/11/17 11:02 General appearance: Present: cooperative, A&O X 3, morbidly obese, pleasant, no acute distress, answers questions appropriately - Eye Eye exam: Present: PERRL, sclera anicteric - Neck Neck exam general surgery: Present: supple, trachea midline. Absent: lymphadenopathy - Respiratory Respiratory exam: Present: CTAB - Cardiovascular Cardiovascular exam: Present: RRR - GI/Abdominal GI/Abdominal exam: Present: normal bowel sounds, soft, tenderness (diffuse ), no peritoneal signs. Absent: distended - Extremities Exam Extremities exam: Absent: pedal edema - Back Exam Back exam: Absent: CVA tenderness (L), CVA tenderness (R) - Neurological Exam Neurological exam: Present: alert, normal gait, oriented X3. Absent: facial droop, speech deficit - Skin Skin exam: Absent: rash Internal Medicine: Result - Labs CBC & Chem 7: 01/11/17 05:31 01/11/17 05:31 Labs: Short CBC 01/11/17 Range/Units 05:31 WBC 4.4 (4.3-11.1) K/mcL Hgb 9.6 L (11.5-15.4) g/dL Hct 30.0 L (35.3-44.9) % Plt Count 47 L (140-400) K/mcL Neutrophils # 2.3 (1.6-8.9) K/mcL BMP 01/11/17 05:31 Sodium 138 Potassium 4.3 Chloride 109 Carbon Dioxide 20 BUN 4 L Creatinine 0.75 Glucose 90 Calcium 7.3 L Liver Function 01/11/17 Range/Units 05:31 Total Bilirubin 0.5 (0.2-1.2) mg/dL Direct Bilirubin 0.3 (0.0-0.5) mg/dL AST 273 H (5-34) Units/L ALT 192 H (0-55) Units/L Alkaline Phosphatase 90 (38-126) Units/L Albumin 3.1 L (3.5-5.0) g/dL - ABG Interpretation ABG results: PT/INR, D-dimer PT 13.3 Seconds (9.4-12.1) H 01/11/17 15:30 Consult Discharge Plan - Plan Referrals: Silas Deng MD [Primary Care Provider] - 01/20/17 1:30 pm
[2017-01-12] MEDS: *HR* Morphine 2 MG/ML SYRINGE IVP PRN ×3 (00:01→09:52)
[2017-01-12] MEDS: Ondansetron 4 MG/2 ML VIAL IVP PRN (05:19)
[2017-01-12] MEDS ORDERED: Multivit/Ca/Min/Fe/FA 1 TAB TABLET PO SCH (09:00)
[2017-01-12] MEDS ORDERED: Folic Acid 1 MG TABLET PO SCH (09:00)
[2017-01-12] MEDS ORDERED: Thiamine (B-1) 100 MG TABLET PO SCH (09:00)
[2017-01-12] MEDS: Nicotine 14 MG PATCH.TD24 TD SCH (09:09)
[2017-01-12] MEDS: Pantoprazole 40 MG VIAL IVP SCH (09:09)
[2017-01-12] MEDS: *HR* LORazepam 1 MG TABLET PO SCH (09:10)
--- NOTE | 2017-01-12 10:01 | Internal Med Progress Note ---
Date of Encounter: 01/12/17 Time of Encounter: 08:30 - Assessment and plan (1) Abdominal pain Current Visit: No Status: Acute Assessment and plan: - RUQ abdominal pain radiating to the right flank. - Likely secondary to colitis of ascending & transverse colon as suggested by MRCP. - MRCP & liver US found biliary sludge in gallbladder but not other signs of acute cholecystitis. - Clinically improves as patient is able to take some oral intake. - Continue IV fluid and pain control. - Possible discharge tomorrow. Qualifiers: Abdominal location: epigastric Qualified Code(s): R10.13 - Epigastric pain (2) Alcoholic hepatitis Current Visit: No Status: Acute Assessment and plan: - Elevated AST at 905 and ALT at 424. 2:1 ratio likely suggestive of alcoholic hepatitis. - Continue supportive therapy with IV fluids, alcohol cessation and close monitoring. Qualifiers: Ascites presence: without ascites Qualified Code(s): K70.10 - Alcoholic hepatitis without ascites (3) Hepatitis C Current Visit: No Status: Chronic Assessment and plan: - Follow up with [facility] for outpatient evaluation and management. Qualifiers: Viral hepatitis chronicity: chronic Hepatic coma status: without hepatic coma Qualified Code(s): B18.2 - Chronic viral hepatitis C (4) Pancreatitis Current Visit: No Status: Chronic Assessment and plan: - History of recurrent alcohol-induce pancreatitis. - Normal Lipase and amylase on admission. - Mild atrophic parenchyma with no focal abnormality. Qualifiers: Chronicity: chronic Pancreatitis type: alcohol induced Qualified Code(s) : K86.0 - Alcohol-induced chronic pancreatitis (5) Pancytopenia Current Visit: Yes Status: Chronic Assessment and plan: - Chronic pancytopenia but with platelets lower than usual on admission. Likely secondary to chronic liver disease and suspected liver cirrhosis. - No signs of bleeding. Close monitoring. - Subjective Interval history: No significant event noted overnight. Patient was seen and examined this morning. Patient had been on full liquid diet but still complains of some RUQ abdominal pain with some nausea, especially right after eating. Patient denies fever, chills, diarrhea, chest pain, shortness of breath, cough. - Constitutional Vitals: Temp Pulse Resp BP Pulse Ox 98.5 F 71 14 131/86 97 01/11/17 23:36 01/11/17 23:36 01/11/17 23:36 01/11/17 23:36 01/11/17 23:36 General appearance: Present: cooperative, A&O X 3, morbidly obese, pleasant, no acute distress, answers questions appropriately - Head Head exam: Present: atraumatic, normocephalic - Eye Eye exam: Present: PERRL, conjuntiva pink, sclera anicteric - Neck Neck exam general surgery: Present: supple, trachea midline. Absent: lymphadenopathy - Respiratory Respiratory exam: Present: CTAB. Absent: accessory muscle use, rales, rhonchi, wheezes - Cardiovascular Cardiovascular exam: Present: RRR, +S1, +S2. Absent: diastolic murmur, gallop, rubs, systolic murmur - GI/Abdominal GI/Abdominal exam: Present: normal bowel sounds, soft, tenderness (Mostly at RUQ to right flank.), no peritoneal signs. Absent: distended - Extremities Exam Extremities exam: Present: pedal edema (Mild), warm, radial pulses palpable and symetrical. Absent: calf tenderness, cyanotic - Neurological Exam Neurological exam: Present: CN II-XII intact, oriented X3, no focal deficits. Absent: pronater drift, facial droop, speech deficit - Skin Skin exam: Present: dry, intact. Absent: rash Internal Medicine: Result - Labs CBC & Chem 7: 01/12/17 12:44 01/12/17 11:46 - ABG Interpretation ABG results: PT/INR, D-dimer PT 13.3 Seconds (9.4-12.1) H 01/11/17 15:30 - Impressions Impressions Abdomen MRI 01/11/17 13:55 IMPRESSION: 1. Edematous wall thickening in the ascending and transverse colon, suggesting colitis. Recommend further evaluation with a contrast-enhanced CT. 2. Biliary sludge, cholelithiasis, and mild gallbladder distention. Trace pericholecystic fluid is felt most likely to be related to the colonic finding. Consider further characterization with sonography if there are clinical findings of cholecystitis. 3. Incidental findings as above. D/ / Arturo Trinidad MD / Arturo Trinidad MD Interpreting Provider: Arturo Trinidad MD Liver Ultrasound 01/11/17 20:00 IMPRESSION: 1. No focal abnormality involving the liver. 2. Biliary sludge within the gallbladder but no wall thickening pericholecystic fluid or sonographic Mathew's sign. D/ / Elroy Motley / Elroy Motley Interpreting Provider: Elroy Motley - VTE Documentation of Mechanical Device: Intermittent pneumatic compression device Consult Discharge Plan - Plan Referrals: Silas Deng MD [Primary Care Provider] - 01/20/17 1:30 pm
[2017-01-12] MEDS ORDERED: *HR* OxyCODONE Immed Rel 5 MG TABLET PO PRN (10:33)
[2017-01-12 11:24] VITALS: BP 128/83
--- NOTE | 2017-01-12 11:24 | Gastroenterology Progress Note ---
<Arturo Middleton - Last Filed: 01/12/17 11:22> Date of Encounter: 01/12/17 Time of Encounter: 10:25 - Assessment and plan (1) Pancreatitis Current Visit: No Status: Acute Assessment and plan: Pt with history of pancreatitis. On admission Lipase 47. Pt continues to drink 3 -4 alcoholic malt beverages per day. Pain worsened with PO liquids, restart IV fluids at 125 ml/hr. Continue clear liquids as tolerated. Check CMP. Qualifiers: Chronicity: acute Pancreatitis type: unspecified pancreatitis type Qualified Code(s): K85.90 - Acute pancreatitis without necrosis or infection, unspecified (2) Hepatitis C Current Visit: No Status: Chronic Assessment and plan: Hep C confirmed 02/07/2016 with genotype 1A or 1B. Pt interested in treatment. Pt must be drug and alcohol free to qualify for treatment. Qualifiers: Viral hepatitis chronicity: chronic Hepatic coma status: without hepatic coma Qualified Code(s): B18.2 - Chronic viral hepatitis C (3) Anemia Current Visit: No Status: Chronic Assessment and plan: Hgb 10.4 on admission. Labs pending today. Continue to monitor CBC and transfuse PRBC as needed. Likely secondary to cirrhosis. Qualifiers: Anemia type: unspecified type Qualified Code(s): D64.9 - Anemia, unspecified (4) Thrombocytopenia Current Visit: No Status: Acute Assessment and plan: Platelets low since 2014. Likely secondary to alcoholic cirrhosis. (5) Alcohol abuse Current Visit: No Status: Acute Assessment and plan: Avoid all alcohol. (6) Hepatic steatosis Current Visit: No Status: Acute Assessment and plan: Complete liver workup. (7) Elevated LFTs Current Visit: No Status: Acute - Time Spent With Patient Total time spent is greater than 50% in coordination of care (as documented) at patient's floor/unit and/or counseling patient: - Subjective Interval history: Pt continues to complain of abdominal pain. She has started drinking clears, but states it worsens her abdominal pain. - Constitutional Vitals: Temp Pulse Resp BP Pulse Ox 98.4 F 76 16 164/104 94 L 01/12/17 08:15 01/12/17 08:15 01/12/17 08:15 01/12/17 08:16 01/12/17 08:15 General appearance: Present: cooperative, A&O X 3, no acute distress, answers questions appropriately - Head Head exam: Present: atraumatic, normocephalic - Eye Eye exam: Present: normal appearance, sclera anicteric - ENT ENT exam: Present: mucous membranes dry - Neck Neck exam general surgery: Present: normal inspection, trachea midline - Respiratory Respiratory exam: Present: CTAB. Absent: rales, rhonchi - Cardiovascular Cardiovascular exam: Present: RRR, +S1, +S2 - GI/Abdominal GI/Abdominal exam: Present: guarding, soft, tenderness (epigastric), no peritoneal signs. Absent: distended, firm - Rectal Rectal exam: Present: deferred - Extremities Exam Extremities exam: Present: warm - Neurological Exam Neurological exam: Present: no focal deficits - Psychiatric Psychiatric exam: Present: normal affect, normal mood - Skin Skin exam: Present: dry, intact, normal color, warm Results - Labs CBC & Chem 7: 01/11/17 05:31 01/11/17 05:31 Labs: Last Result Calcium 7.3 mg/dL (8.6-10.8) L 01/11/17 05:31 Ferritin 250 ng/ml (5-204) H 01/11/17 05:31 Triglycerides 165 mg/dL (< 150) H 01/09/17 21:49 Entire Visit Hgb 9.6 g/dL (11.5-15.4) L 01/11/17 05:31 Hct 30.0 % (35.3-44.9) L 01/11/17 05:31 PT 13.3 Seconds (9.4-12.1) H 01/11/17 15:30 Ferritin 250 ng/ml (5-204) H 01/11/17 05:31 Total Bilirubin 0.5 mg/dL (0.2-1.2) 01/11/17 05:31 AST 273 Units/L (5-34) H 01/11/17 05:31 ALT 192 Units/L (0-55) H 01/11/17 05:31 Amylase 47 Units/L (25-125) 01/09/17 15:20 Lipase 47 Units/L (8-78) 01/09/17 15:20 - ABG ABG results: PT/INR, D-dimer PT 13.3 Seconds (9.4-12.1) H 01/11/17 15:30 - Impressions Impressions Abdomen MRI 01/11/17 13:55 IMPRESSION: 1. Edematous wall thickening in the ascending and transverse colon, suggesting colitis. Recommend further evaluation with a contrast-enhanced CT. 2. Biliary sludge, cholelithiasis, and mild gallbladder distention. Trace pericholecystic fluid is felt most likely to be related to the colonic finding. Consider further characterization with sonography if there are clinical findings of cholecystitis. 3. Incidental findings as above. D/ / Arturo Trinidad MD / Arturo Trinidad MD Interpreting Provider: Arturo Trinidad MD Liver Ultrasound 01/11/17 20:00 IMPRESSION: 1. No focal abnormality involving the liver. 2. Biliary sludge within the gallbladder but no wall thickening pericholecystic fluid or sonographic Mathew's sign. D/ / Elroy Motley / Elroy Motley Interpreting Provider: Elroy Motley - VTE Documentation of Mechanical Device: Intermittent pneumatic compression device Consult Discharge Plan - Plan Instructions: Pancreatitis (DC) Additional Instructions: STOP DRINKING ALCOHOL, SEEK CLOSE MONITORING IN A REHAB PROGRAM FOLLOW UP WITH YOUR PRIMARY CARE DOCTOR IN 1 WEEK BLOOD TEST NEXT WEEK TO ASSESS YOUR LIVER FUNCTION DRINK PLENTY OF FLUIDS. AT LEAST 2 LITERS PER DAY may take oxycodone for pain relief for 2 more days at home, then resume taking your suboxone. do not take both medications at the same time (suboxone and oxycodone) Referrals: Silas Deng MD [Primary Care Provider] - 01/20/17 1:30 pm Prescriptions: Ondansetron ODT [Zofran ODT] 4 mg SL Q8HR PRN #30 tab.rapdis PRN Reason: Nausea And Vomiting OxyCODONE Immed Rel [Roxicodone 5 MG] 5 mg PO Q12HR PRN #7 tablet PRN Reason: Severe Pain LORazepam [Ativan] 1 mg PO DAILY #7 tablet Multivit/Ca/Min/Fe/FA [Thera M Plus] 1 tab PO DAILY #30 tablet Nicotine Patch [Nicoderm] 14 mg TD DAILY #30 patch.td24 Thiamine (B-1) [Vitamin B-1] 100 mg PO DAILY #30 tablet <Lazarus Siegel - Last Filed: 01/12/17 18:01> - Time Spent With Patient Total time spent is greater than 50% in coordination of care (as documented) at patient's floor/unit and/or counseling patient: - Constitutional Vitals: Temp Pulse Resp BP Pulse Ox 98.3 F 70 15 128/83 97 01/12/17 10:55 01/12/17 10:55 01/12/17 10:55 01/12/17 10:55 01/12/17 10:55 Results - Labs CBC & Chem 7: 01/12/17 12:44 01/12/17 11:46 Labs: Last Result Calcium 8.2 mg/dL (8.6-10.8) L 01/12/17 11:46 Ferritin 250 ng/ml (5-204) H 01/11/17 05:31 Triglycerides 165 mg/dL (< 150) H 01/09/17 21:49 Entire Visit Hgb 9.5 g/dL (11.5-15.4) L 01/12/17 12:44 Hct 29.0 % (35.3-44.9) L 01/12/17 12:44 PT 13.3 Seconds (9.4-12.1) H 01/11/17 15:30 Ferritin 250 ng/ml (5-204) H 01/11/17 05:31 Total Bilirubin 0.4 mg/dL (0.2-1.2) 01/12/17 11:46 AST 126 Units/L (5-34) H 01/12/17 11:46 ALT 116 Units/L (0-55) H 01/12/17 11:46 Amylase 47 Units/L (25-125) 01/09/17 15:20 Lipase 47 Units/L (8-78) 01/09/17 15:20 - ABG ABG results: PT/INR, D-dimer PT 13.3 Seconds (9.4-12.1) H 01/11/17 15:30 - Impressions Impressions Liver Ultrasound 01/11/17 20:00 IMPRESSION: 1. No focal abnormality involving the liver. 2. Biliary sludge within the gallbladder but no wall thickening pericholecystic fluid or sonographic Mathew's sign. D/ / Elroy Motley / Elroy Motley Interpreting Provider: Elroy Motley - Attending Attestation I examined this patient and my medical decision-making was reviewed with the SAMPLE SELECTOR/PA/Advanced Practice Nurse/Resident Physician. I agree with the documented findings, disposition and treatment plan as described except to the extent set forth below. CT scan reviewed no obvious finding to suggest cirrhosis. Patient still drinks and was probably the pancytopenia is due to her drinking
[2017-01-12] MEDS ORDERED: Ondansetron ODT 4 MG TAB.RAPDIS SL PRN (11:36)
[2017-01-12] MEDS ORDERED: 0.9 % Sodium Chloride 1,000 ML IVC SCH (11:45)
[2017-01-12 12:09] LABS: Alanine Aminotransferase 116 Units/L (0-55); Albumin 2.9 g/dL (3.5-5.0); Albumin/Globulin Ratio 0.9 (1.1-2.2); Alkaline Phosphatase 85 Units/L (38-126); Aspartate Amino Transferase 126 Units/L (5-34); BUN/Creatinine Ratio 4 (6-26); Bilirubin,Total 0.4 mg/dL (0.2-1.2); Blood Urea Nitrogen 3 mg/dL (7-20); Calcium 8.2 mg/dL (8.6-10.8); Carbon Dioxide 25 mEq/L (19-29); Chloride 107 mEq/L (98-109); Globulin 3.4 g/dL (2.4-3.5); Glucose 106 mg/dL (70-99); Osmolality,Calculated 281 (280-300); Potassium 4.2 mEq/L (3.5-4.5); Sodium 137 mEq/L (136-145); Total Protein 6.3 g/dL (6.0-8.3); eGFR For African Americans > 60 (> 60); eGFR For Non-African Americans > 60 (> 60)
[2017-01-12 12:51] LABS: Bilirubin,Direct 0.2 mg/dL (0.0-0.5); Bilirubin,Indirect 0.2 mg/dL (0.0-1.2)
[2017-01-12 13:26] LABS: Basophils % 0.3 %; Eosinophils # 0.1 K/mcL (0.0-0.6); Eosinophils % 3.1 %; Hemoglobin 9.5 g/dL (11.5-15.4); Immature Granulocytes % 0.3 % (0-4); Immature Platelets 5.2 % (1.1-6.1); Lymphocytes # 1.2 K/mcL (0.6-4.6); Lymphocytes % 30.7 %; Mean Corpuscular HGB Conc 32.8 g/dL (31.6-35.5); Mean Corpuscular Hemoglobin 30.1 pg (28.0-33.3); Mean Corpuscular Volume 91.8 fL (83.0-100.0); Mean Platelet Volume 11.3 fL (9.4-12.4); Monocytes # 0.2 K/mcL (0.0-1.3); Monocytes % 6.3 %; Neutrophils # 2.3 K/mcL (1.6-8.9); Red Blood Count 3.16 M/mcL (3.82-4.97); Red Cell Distribution Width 21.9 % (11.5-14.5); Segmented Neutrophils % 59.3 %
[2017-01-12 13:27] LABS: Platelet Count 64 K/mcL (140-400)
[2017-01-12] MEDS ORDERED: *HR* LORazepam 1 MG TABLET PO PRN (14:22)
--- NOTE | 2017-01-12 15:58 | Discharge Summary ---
Date of Encounter: 01/12/17 Time of Encounter: 14:00 - Discharge Diagnosis (1) Abdominal pain Priority: Primary Status: Acute Qualifiers: Abdominal location: epigastric Qualified Code(s): R10.13 - Epigastric pain (2) Acute on chronic pancreatitis Priority: Primary Status: Acute (3) Alcoholic hepatitis Priority: Primary Status: Acute Qualifiers: Ascites presence: without ascites Qualified Code(s): K70.10 - Alcoholic hepatitis without ascites (4) Colitis Priority: Primary Status: Acute (5) Alcohol abuse Priority: Primary Status: Acute (6) Hypothyroid Priority: Secondary Status: Chronic Qualifiers: Hypothyroidism type: postoperative Qualified Code(s): E89.0 - Postprocedural hypothyroidism (7) Pancytopenia Priority: Secondary Status: Chronic (8) Hepatitis C Priority: Secondary Status: Chronic Qualifiers: Viral hepatitis chronicity: chronic Hepatic coma status: without hepatic coma Qualified Code(s): B18.2 - Chronic viral hepatitis C - Discharge Medications Prescriptions: Ondansetron ODT [Zofran ODT] 4 mg SL Q8HR PRN #30 tab.rapdis PRN Reason: Nausea And Vomiting OxyCODONE Immed Rel [Roxicodone 5 MG] 5 mg PO Q12HR PRN #7 tablet PRN Reason: Severe Pain LORazepam [Ativan] 1 mg PO DAILY #7 tablet Multivit/Ca/Min/Fe/FA [Thera M Plus] 1 tab PO DAILY #30 tablet Nicotine Patch [Nicoderm] 14 mg TD DAILY #30 patch.td24 Thiamine (B-1) [Vitamin B-1] 100 mg PO DAILY #30 tablet Home Medications: Folic Acid 1 mg PO DAILY #15 tablet 02/08/16 [Rx] Albuterol Sulfate [Albuterol Inhaler] 1 puff IH Q4-6H PRN 01/09/17 [History] Levothyroxine [Synthroid] 125 mcg PO DAILY 01/09/17 [History] Buprenorphine HCl/Naloxone HCl [Suboxone 8 mg-2 mg Sl Film] 1.75 film SL DAILY 01/10/17 [History] Hydroxyzine HCl 25 mg PO TID 01/10/17 [History] Pantoprazole Sodium [Protonix] 40 mg PO DAILY 01/10/17 [History] LORazepam [Ativan] 1 mg PO DAILY #7 tablet 01/12/17 [Rx] Multivit/Ca/Min/Fe/FA [Thera M Plus] 1 tab PO DAILY #30 tablet 01/12/17 [Rx] Nicotine Patch [Nicoderm] 14 mg TD DAILY #30 patch.td24 01/12/17 [Rx] Ondansetron ODT [Zofran ODT] 4 mg SL Q8HR PRN #30 tab.rapdis 01/12/17 [Rx] OxyCODONE Immed Rel [Roxicodone 5 MG] 5 mg PO Q12HR PRN #7 tablet 01/12/17 [Rx] Thiamine (B-1) [Vitamin B-1] 100 mg PO DAILY #30 tablet 01/12/17 [Rx] Allergies/Adverse Reactions: Allergies No Known Allergies Allergy (Verified 01/09/17 14:09) Procedures/tests Complete & Pending: Procedures Performed prior 72 hours Category Date Time Status US liver [US] Routine Exams 01/11/17 20:00 Completed MR abdomen wo con [MR] Stat MRI 01/11/17 13:55 Completed Date of admission: 01/09/17 18:23 Primary care physician: Silas Deng Consults: 01/09/17 20:58 Consult to [employer] Custodian [CONS] Routine Reason for SW Consult: Assitance with resources to quit etoh 01/09/17 21:47 Consult to Gastroenterology [CONS] Routine Consulting Provider: Danae Davis Reason for Consult: Chronic Pancreatitis with history of etoh abuse and hep C. She denies ever having received treatment for her Hep C. Assistance for best ongoing care of patient pancreatitis and hepatitis C Call Completed: No - Patient Status Disposition: Home, Self-Care Condition: Good Functional capacity at discharge: independent ambulation Overall status at discharge: patient is progressing back to baseline - Discharge Instructions Instructions: Pancreatitis (DC) Follow Up With: Silas Deng MD [Primary Care Provider] - 01/20/17 1:30 pm Additional Instructions: STOP DRINKING ALCOHOL, SEEK CLOSE MONITORING IN A REHAB PROGRAM FOLLOW UP WITH YOUR PRIMARY CARE DOCTOR IN 1 WEEK BLOOD TEST NEXT WEEK TO ASSESS YOUR LIVER FUNCTION DRINK PLENTY OF FLUIDS. AT LEAST 2 LITERS PER DAY may take oxycodone for pain relief for 2 more days at home, then resume taking your suboxone. do not take both medications at the same time (suboxone and oxycodone) - Diet and Activity Activity: resume usual activities as tolerated Diet: low fat, low cholesterol (soft diet for 1 week, then advance to regular low fat diet.), low salt diet Interval History: Patient had a bowel movement and is tolerating well her diet. She is eager to go home. Hospital course: Ms. Henry is a 41 year old female with a past medical history of heavy alcohol use, chronic pancreatitis due to alcohol and suspected chronic liver disease with cirrhosis, chronic pancytopenia, and hepatitis C infection. Multiple prior episodes of hepatitis due to alcohol abuse. Patient continues to drink 3-4 alcoholic malt beverages per day (~ 14% etoh content). This time she presents with nausea, vomiting and severe epigastric pain. She was admitted with diagnoses of acute on chronic pancreatitis, alcoholic hepatitis, and alcoholic gastritis. She received supportive therapy with IV fluids hydration, pain control and fixed Ativan dose to prevent withdrawal symptoms. MRCP revealed edematous wall thickening in the ascending and transverse colon suggesting colitis. Biliary sludge, cholelithiasis, mild gallbladder distention. Right upper quadrant ultrasound showed BUN is sludge within the gallbladder but no wall thickening, pericholecystic fluid or sonographic Mathew's sign. No focal abnormality involving the liver. Colitis likely related to alcohol abuse, no signs of infection. No diarrhea. No need for antibiotics. PLAN: Patient explained in detail her diagnosis, treatment and poor prognosis if she continues drinking alcohol. She was encouraged to quit drinking alcohol. She verbalized understanding and agreed with the plan. She will follow-up in a detox clinic. LFT check in a week. For now with primary care physician in a week. - Time Spent with Patient Total time spent providing and/or coordinating discharge services: - Constitutional Vitals: Temp Pulse Resp BP Pulse Ox 98.3 F 70 15 128/83 97 01/12/17 10:55 01/12/17 10:55 01/12/17 10:55 01/12/17 10:55 01/12/17 10:55 General appearance: Present: cooperative, A&O X 3, morbidly obese, pleasant, no acute distress, answers questions appropriately - VTE Documentation of Mechanical Device: Intermittent pneumatic compression device
[2017-01-13] MEDS ORDERED: *HR* LORazepam 1 MG TABLET PO SCH (09:00)
[2017-01-14 08:04] LABS: AFP Tumor Marker Non-Pregnant 6 ng/mL (0-9)
[2017-01-14 08:05] LABS: Alpha-1-Antitrypsin 95 mg/dL (90-200)
[2017-01-14 08:14] LABS: ANA IgG by ELISA NONE DETECTED (None Detected); F-Actin (sm muscle) Ab IgG 11 Units (0-19); Myeloperoxidase Ab 0 AU/mL (0-19); Serine Protease-3 Antibody 0 AU/mL (0-19)
[2017-01-14 15:01] LABS: Ceruloplasmin 23 mg/dL (17-54)
== END 2017-01-12 18:12 | disposition home or self-care (01) ==
LOC: 3ANU 14:01 → EMEROO 14:01 → SUATTDRO 18:23 → 3ANU 19:12
PROVIDERS: ADMIT Internal Medicine; ATTEND Internal Medicine

== ENCOUNTER 2022-02-06 09:20 | Inpatient (IN) ==
[2022-02-06] MEDS ORDERED: Piperacillin/Tazobactam 3.375 GM in 0.9 % Sodium Chloride Mini Bag 100 ML IVPB ONE (09:58)
[2022-02-06] MEDS ORDERED: Vancomycin 1,750 MG/517.5 ML IV.SOLN IVPB ONE (10:00)
[2022-02-06] MEDS ORDERED: 0.9 % Sodium Chloride 1,000 ML IVC ONE (10:06)
[2022-02-06] MEDS ORDERED: 0.9 % Sodium Chloride 500 ML IVC ONE (10:07)
[2022-02-06 10:44] LABS: Hematocrit 36.1 % (35.3-44.9); Hemoglobin 11.9 g/dL (11.5-15.4); Mean Corpuscular Hemoglobin 28.4 pg (28.0-33.3); Mean Corpuscular Volume 86.2 fL (83.0-100.0); Mean Platelet Volume 11.4 fL (9.4-12.4); Platelet Count 191 K/mcL (140-400); Red Blood Count 4.19 M/mcL (3.82-4.97); Red Cell Distribution Width 14.1 % (11.5-14.5); White Blood Count 10.3 K/mcL (4.3-11.1)
[2022-02-06 10:48] LABS: VBG HCO3 30 mEq/L (21-27); VBG PCO2 43 mmHg (41-51); VBG PH 7.45 pH Units (7.32-7.42); VBG PO2 78 mmHg (25-50)
[2022-02-06] MEDS ORDERED: *HR* LORazepam 2 MG/ML VIAL IVP STA (10:50)
[2022-02-06 13:00] LABS: Influenza A PCR Negative (Negative); Influenza B PCR Negative (Negative); Resp. Syncytial Virus PCR Negative (Negative); SARS-CoV-2 by PCR (In House) Negative (Negative)
[2022-02-06 13:17] LABS: Alanine Aminotransferase 13 Units/L (7-52); Albumin 3.8 g/dL (3.5-5.7); Albumin/Globulin Ratio 1.3 (1.1-2.2); Alkaline Phosphatase 64 Units/L (34-104); Aspartate Amino Transferase 25 Units/L (13-39); BUN/Creatinine Ratio 10 (6-26); Bilirubin,Direct 0.1 mg/dL (0.0-0.2); Bilirubin,Indirect 0.5 mg/dL (0.0-1.0); Bilirubin,Total 0.6 mg/dL (0.3-1.0); Blood Urea Nitrogen 7 mg/dL (6-20); Calcium 9.2 mg/dL (8.6-10.3); Carbon Dioxide 28 mEq/L (23-29); Chloride 88 mEq/L (98-107); Glucose 115 mg/dL (70-105); Lipase 11 Units/L (11-82); Osmolality,Calculated 261 (280-300); Sodium 126 mEq/L (136-145); Total Protein 6.8 g/dL (6.4-8.9); eGFR For African Americans > 60 (> 60); eGFR For Non-African Americans > 60 (> 60)
[2022-02-06] MEDS ORDERED: Naloxone 0.4 MG/ML INJ IVP PRN (13:35)
[2022-02-06] MEDS ORDERED: Isovue-370 500 ML BOTTLE IVP ONE (13:36)
[2022-02-06] MEDS ORDERED: Potassium Chloride Elixir 20 MEQ/15 ML UDC PO ONE (13:39)
[2022-02-06 14:31] LABS: Bilirubin,Urine Negative (Negative); Blood,Urine Negative (Negative); Clarity,Urine Clear (Clear); Color,Urine Colorless (Yellow); Glucose,Urine (UA) Normal (Normal); Ketones,Urine Negative (Negative); Leukocyte Esterase,Urine Negative (Negative); Nitrite,Urine Negative (Negative); Protein,Urine Negative (Neg-Trace); Specific Gravity,Urine 1.007 (1.010-1.025); Urobilinogen,Urine Normal (Normal)
[2022-02-06] MEDS: 0.9 % Sodium Chloride 1,000 ML IVC SCH ×6 (14:40→17:18)
[2022-02-06 14:59] LABS: Amphetamine Screen,Urine Negative ng/mL (Cutoff=1000); Barbiturate Screen,Urine Negative ng/mL (Cutoff=200); Benzodiazepines Screen,Urine Negative ng/mL (Cutoff=200); Cannabinoid Screen,Urine Negative ng/mL (Cutoff = 50); Cocaine Screen,Urine Negative ng/mL (Cutoff= 300); Opiate Screen,Urine Negative ng/mL (Cutoff=300); Phencyclidine Screen,Urine Negative ng/mL (Cutoff=25)
[2022-02-06 15:31] LABS: Magnesium 1.8 mg/dL (1.6-2.6)
[2022-02-06] MEDS: Gabapentin 300 MG CAPSULE PO SCH ×2 (17:16→20:46)
[2022-02-06] MEDS: Piperacillin/Tazobactam 3.375 GM in 0.9 % Sodium Chloride Mini Bag 100 ML IVPB SCH (17:18)
[2022-02-06] MEDS: *HR* Heparin 5,000 UNIT/ML VIAL SQ SCH (17:18)
[2022-02-06 20:46] LABS: BUN/Creatinine Ratio 9 (6-26); Blood Urea Nitrogen 6 mg/dL (6-20); Calcium 9.6 mg/dL (8.6-10.3); Carbon Dioxide 30 mEq/L (23-29); Chloride 94 mEq/L (98-107); Glucose 116 mg/dL (70-105); Osmolality,Calculated 277 (280-300); Potassium 4.7 mEq/L (3.5-5.1); Sodium 134 mEq/L (136-145); eGFR For African Americans > 60 (> 60); eGFR For Non-African Americans > 60 (> 60)
[2022-02-06] MEDS ORDERED: NALOXONE SL SCH (21:00)
[2022-02-06] MEDS ORDERED: BUPRENORPHINE SL SCH (21:00)
[2022-02-07] MEDS: Vancomycin 1,750 MG/517.5 ML IV.SOLN IVPB SCH ×3 (00:06→23:19)
[2022-02-07] MEDS ORDERED: *HR* Buprenorphine HCl 2 MG SUBLINGUAL TABLET SL SCH (00:30)
[2022-02-07] MEDS: 0.9 % Sodium Chloride 1,000 ML IVC SCH (00:39)
[2022-02-07] MEDS: *HR* Buprenorphine HCl 8 MG TAB.SUBL SL SCH ×2 (00:39→10:07)
[2022-02-07] MEDS: Piperacillin/Tazobactam 3.375 GM in 0.9 % Sodium Chloride Mini Bag 100 ML IVPB SCH ×3 (02:15→18:34)
[2022-02-07 05:07] LABS: Basophils % 0.6 %; Eosinophils # 0.2 K/mcL (0.0-0.6); Eosinophils % 4.6 %; Hematocrit 35.4 % (35.3-44.9); Hemoglobin 11.4 g/dL (11.5-15.4); Immature Granulocytes % 0.4 % (0-4); Lymphocytes # 0.5 K/mcL (0.6-4.6); Lymphocytes % 9.9 %; Mean Corpuscular HGB Conc 32.2 g/dL (31.6-35.5); Mean Corpuscular Hemoglobin 28.2 pg (28.0-33.3); Mean Corpuscular Volume 87.6 fL (83.0-100.0); Mean Platelet Volume 10.4 fL (9.4-12.4); Monocytes # 0.6 K/mcL (0.0-1.3); Monocytes % 10.7 %; Neutrophils # 3.9 K/mcL (1.6-8.9); Platelet Count 208 K/mcL (140-400); Red Blood Count 4.04 M/mcL (3.82-4.97); Red Cell Distribution Width 14.4 % (11.5-14.5); Segmented Neutrophils % 73.8 %; White Blood Count 5.3 K/mcL (4.3-11.1)
[2022-02-07 05:30] LABS: BUN/Creatinine Ratio 10 (6-26); Blood Urea Nitrogen 6 mg/dL (6-20); Carbon Dioxide 30 mEq/L (23-29); Chloride 95 mEq/L (98-107); Glucose 133 mg/dL (70-105); Magnesium 1.9 mg/dL (1.6-2.6); Osmolality,Calculated 278 (280-300); Phosphorous 2.7 mg/dL (2.7-4.5); Potassium 2.9 mEq/L (3.5-5.1); Sodium 134 mEq/L (136-145); eGFR For African Americans > 60 (> 60); eGFR For Non-African Americans > 60 (> 60)
[2022-02-07] MEDS: *HR* Heparin 5,000 UNIT/ML VIAL SQ SCH ×2 (05:40→18:24)
[2022-02-07] MEDS ORDERED: Ibuprofen 600 MG TABLET PO ONE (05:50)
[2022-02-07] MEDS: Gabapentin 300 MG CAPSULE PO SCH ×4 (10:07→19:53)
[2022-02-07] MEDS: cloNIDine HCL 0.1 MG TABLET PO SCH (10:07)
[2022-02-07] MEDS: hydrOXYzine pamoate 25 MG CAPSULE PO SCH (10:07)
[2022-02-07] MEDS: Acetaminophen IV 1,000 MG/100 ML BAG IVPB SCH ×3 (12:41→22:24)
[2022-02-07] MEDS ORDERED: *HR* LORazepam 1 MG TABLET PO STA (12:54)
[2022-02-07] MEDS: Nicotine 21 MG PATCH.TD24 TD SCH (13:54)
[2022-02-07] MEDS: *HR* Buprenorphine HCl 2 MG SUBLINGUAL TABLET SL SCH (19:54)
[2022-02-07] MEDS: tiZANidine 4 MG TABLET PO PRN (22:24)
[2022-02-08] MEDS: Piperacillin/Tazobactam 3.375 GM in 0.9 % Sodium Chloride Mini Bag 100 ML IVPB SCH ×3 (01:06→17:04)
[2022-02-08] MEDS: Acetaminophen IV 1,000 MG/100 ML BAG IVPB SCH ×3 (04:56→17:02)
[2022-02-08] MEDS: *HR* Heparin 5,000 UNIT/ML VIAL SQ SCH ×2 (04:59→17:05)
[2022-02-08] MEDS ORDERED: Lidocaine/EPI 1:100k 1% 30 ML VIAL ONE (07:31)
[2022-02-08] MEDS ORDERED: *HR* FentaNYL (PF) 100 MCG/2 ML VIAL ONE (07:37)
[2022-02-08] MEDS ORDERED: Lidocaine -MPF 2% 2 ML VIAL ONE ×2 (07:37→07:38)
[2022-02-08] MEDS ORDERED: *HR* Midazolam HCl 2 MG/2 ML VIAL ONE ×2 (07:37→08:17)
[2022-02-08] MEDS ORDERED: *HR* Propofol 200 MG/20 ML VIAL IVP ONE ×2 (07:37→08:35)
[2022-02-08] MEDS ORDERED: Ondansetron 4 MG/2 ML VIAL ONE (07:37)
[2022-02-08] MEDS ORDERED: dexmedeTOMIDine in 0.9 % NaCL 80 MCG/20 ML MLS ONE (07:51)
[2022-02-08] MEDS ORDERED: Ketamine HCL *QUVA* 50mg (1mL) SYRINGE ONE (07:51)
[2022-02-08] MEDS ORDERED: Ipratropium/Albuterol Neb 3 ML ONE (07:57)
[2022-02-08] MEDS ORDERED: Ipratropium/Albuterol Neb 3 ML IH ONE (07:58)
[2022-02-08] MEDS ORDERED: *HR* Rocuronium Bromide 50 MG/5 ML VIAL ONE (08:13)
[2022-02-08] MEDS ORDERED: *HR* Succinylcholine 200 MG/10 ML VIAL IVP ONE (08:13)
[2022-02-08] MEDS ORDERED: Lidocaine HCL 4 ML Topical Solution (Laryng-O-Jet Kit Sterile Pak) TP ONE (08:14)
[2022-02-08] MEDS ORDERED: *HR* OxyCODONE Immed Rel 5 MG TABLET PO PRN (08:16)
[2022-02-08] MEDS ORDERED: *HR* HYDROmorphone 2 MG TABLET PO PRN (08:16)
[2022-02-08] MEDS ORDERED: *HR* HYDROmorphone (PF) 1 MG/ML SYRINGE IVP PRN (08:16)
[2022-02-08] MEDS ORDERED: Famotidine 20 MG/2 ML VIAL IVP ONE (08:16)
[2022-02-08] MEDS ORDERED: Promethazine 6.25 MG in Water for inj. (sterile) 20 ML IVPB PRN (08:17)
[2022-02-08] MEDS: cloNIDine HCL 0.1 MG TABLET PO SCH ×2 (09:50→13:43)
[2022-02-08] MEDS: Gabapentin 300 MG CAPSULE PO SCH ×4 (09:50→20:33)
[2022-02-08] MEDS: Nicotine 21 MG PATCH.TD24 TD SCH ×2 (09:50→13:47)
[2022-02-08] MEDS: *HR* Buprenorphine HCl 2 MG SUBLINGUAL TABLET SL SCH ×3 (09:51→20:32)
[2022-02-08] MEDS: hydrOXYzine pamoate 25 MG CAPSULE PO SCH ×2 (09:51→13:49)
[2022-02-08] MEDS: Vancomycin 1,750 MG/517.5 ML IV.SOLN IVPB SCH ×2 (12:02→23:53)
[2022-02-08] MEDS: Ketorolac 30 MG/ML VIAL IVP PRN ×2 (13:58→20:32)
[2022-02-08] MEDS ORDERED: *HR* HYDROmorphone (PF) 1 MG/ML SYRINGE IVP ONE ×2 (16:36→16:37)
[2022-02-08] MEDS: tiZANidine 4 MG TABLET PO PRN (17:02)
[2022-02-09] MEDS: Acetaminophen IV 1,000 MG/100 ML BAG IVPB SCH ×5 (01:16→22:56)
[2022-02-09 01:59] LABS: BUN/Creatinine Ratio 14 (6-26); Blood Urea Nitrogen 14 mg/dL (6-20); Calcium 9.3 mg/dL (8.6-10.3); Carbon Dioxide 22 mEq/L (23-29); Chloride 98 mEq/L (98-107); Glucose 144 mg/dL (70-105); Osmolality,Calculated 281 (280-300); Potassium 4.8 mEq/L (3.5-5.1); Sodium 134 mEq/L (136-145); eGFR For African Americans > 60 (> 60); eGFR For Non-African Americans > 60 (> 60)
[2022-02-09] MEDS: Ketorolac 30 MG/ML VIAL IVP PRN ×2 (02:09→08:16)
[2022-02-09] MEDS: Piperacillin/Tazobactam 3.375 GM in 0.9 % Sodium Chloride Mini Bag 100 ML IVPB SCH ×3 (02:10→17:56)
[2022-02-09] MEDS: tiZANidine 4 MG TABLET PO PRN (02:15)
[2022-02-09 04:38] LABS: Basophils % 0.2 %; Eosinophils % 0.1 %; Hematocrit 33.6 % (35.3-44.9); Hemoglobin 10.5 g/dL (11.5-15.4); Immature Granulocytes % 0.5 % (0-4); Lymphocytes # 1.1 K/mcL (0.6-4.6); Lymphocytes % 9.6 %; Mean Corpuscular HGB Conc 31.3 g/dL (31.6-35.5); Mean Corpuscular Hemoglobin 28.2 pg (28.0-33.3); Mean Corpuscular Volume 90.3 fL (83.0-100.0); Mean Platelet Volume 10.8 fL (9.4-12.4); Monocytes # 0.8 K/mcL (0.0-1.3); Monocytes % 6.8 %; Neutrophils # 9.7 K/mcL (1.6-8.9); Platelet Count 224 K/mcL (140-400); Red Blood Count 3.72 M/mcL (3.82-4.97); Red Cell Distribution Width 14.4 % (11.5-14.5); Segmented Neutrophils % 82.8 %
[2022-02-09 04:41] LABS: White Blood Count 11.7 K/mcL (4.3-11.1)
[2022-02-09 05:05] LABS: BUN/Creatinine Ratio 16 (6-26); Blood Urea Nitrogen 14 mg/dL (6-20); Calcium 9.1 mg/dL (8.6-10.3); Carbon Dioxide 26 mEq/L (23-29); Chloride 96 mEq/L (98-107); Glucose 144 mg/dL (70-105); Osmolality,Calculated 277 (280-300); Potassium 4.2 mEq/L (3.5-5.1); Sodium 132 mEq/L (136-145); eGFR For African Americans > 60 (> 60); eGFR For Non-African Americans > 60 (> 60)
[2022-02-09] MEDS: *HR* Heparin 5,000 UNIT/ML VIAL SQ SCH ×2 (06:21→17:56)
[2022-02-09] MEDS: cloNIDine HCL 0.1 MG TABLET PO SCH (08:08)
[2022-02-09] MEDS: *HR* Buprenorphine HCl 2 MG SUBLINGUAL TABLET SL SCH ×2 (08:09→21:39)
[2022-02-09] MEDS: Gabapentin 300 MG CAPSULE PO SCH ×4 (08:09→21:39)
[2022-02-09] MEDS: Nicotine 21 MG PATCH.TD24 TD SCH (08:10)
[2022-02-09] MEDS: hydrOXYzine pamoate 25 MG CAPSULE PO SCH (08:10)
[2022-02-09] MEDS ORDERED: *HR* HYDROmorphone (PF) 1 MG/ML SYRINGE IVP PRN (09:30)
[2022-02-09] MEDS: Sennosides/Docusate Sodium TABLET PO SCH ×2 (10:28→21:38)
[2022-02-09] MEDS: Vancomycin 1,750 MG/517.5 ML IV.SOLN IVPB SCH (11:34)
[2022-02-10] MEDS: Vancomycin 1,750 MG/517.5 ML IV.SOLN IVPB SCH (00:01)
[2022-02-10] MEDS ORDERED: Piperacillin/Tazobactam 3.375 GM VIAL ONE (00:25)
[2022-02-10 00:50] LABS: Basophils # 0.1 K/mcL (0.0-0.2); Basophils % 0.6 %; Eosinophils # 0.2 K/mcL (0.0-0.6); Eosinophils % 2.5 %; Hematocrit 35.6 % (35.3-44.9); Hemoglobin 11.1 g/dL (11.5-15.4); Immature Granulocytes % 0.6 % (0-4); Lymphocytes # 2.1 K/mcL (0.6-4.6); Lymphocytes % 27.6 %; Mean Corpuscular HGB Conc 31.2 g/dL (31.6-35.5); Mean Corpuscular Hemoglobin 28.2 pg (28.0-33.3); Mean Corpuscular Volume 90.4 fL (83.0-100.0); Mean Platelet Volume 10.6 fL (9.4-12.4); Monocytes # 0.7 K/mcL (0.0-1.3); Monocytes % 8.5 %; Neutrophils # 4.7 K/mcL (1.6-8.9); Platelet Count 224 K/mcL (140-400); Red Blood Count 3.94 M/mcL (3.82-4.97); Red Cell Distribution Width 14.5 % (11.5-14.5); Segmented Neutrophils % 60.2 %; White Blood Count 7.7 K/mcL (4.3-11.1)
[2022-02-10] MEDS: tiZANidine 4 MG TABLET PO PRN ×2 (01:03→20:48)
[2022-02-10 01:06] LABS: BUN/Creatinine Ratio 16 (6-26); Blood Urea Nitrogen 14 mg/dL (6-20); Carbon Dioxide 26 mEq/L (23-29); Chloride 98 mEq/L (98-107); Glucose 100 mg/dL (70-105); Osmolality,Calculated 275 (280-300); Potassium 3.9 mEq/L (3.5-5.1); Sodium 132 mEq/L (136-145); eGFR For African Americans > 60 (> 60); eGFR For Non-African Americans > 60 (> 60)
[2022-02-10] MEDS: Ketorolac 30 MG/ML VIAL IVP PRN ×3 (04:37→20:48)
[2022-02-10] MEDS: Acetaminophen IV 1,000 MG/100 ML BAG IVPB SCH ×2 (04:38→11:51)
[2022-02-10] MEDS: Piperacillin/Tazobactam 3.375 GM in 0.9 % Sodium Chloride Mini Bag 100 ML IVPB SCH ×4 (04:38→20:47)
[2022-02-10] MEDS: *HR* Heparin 5,000 UNIT/ML VIAL SQ SCH ×2 (04:38→18:06)
[2022-02-10] MEDS: *HR* Buprenorphine HCl 2 MG SUBLINGUAL TABLET SL SCH ×2 (08:47→20:48)
[2022-02-10] MEDS: cloNIDine HCL 0.1 MG TABLET PO SCH (08:47)
[2022-02-10] MEDS: Nicotine 21 MG PATCH.TD24 TD SCH (08:48)
[2022-02-10] MEDS: Gabapentin 300 MG CAPSULE PO SCH ×4 (08:48→20:46)
[2022-02-10] MEDS: Sennosides/Docusate Sodium TABLET PO SCH ×2 (08:48→20:48)
[2022-02-10] MEDS: hydrOXYzine pamoate 25 MG CAPSULE PO SCH (08:48)
[2022-02-10] MEDS ORDERED: Acetaminophen 325 MG TABLET PO PRN (11:15)
[2022-02-10] MEDS ORDERED: Vancomycin 1,750 MG/517.5 ML IV.SOLN IVPB SCH (12:00)
[2022-02-10] MEDS ORDERED: MOM Conc 10 ML UD.LIQ PO ONE (13:44)
[2022-02-10] MEDS ORDERED: *HR* HYDROmorphone (PF) 1 MG/ML SYRINGE IVP PRN (15:40)
[2022-02-10] MEDS ORDERED: Vancomycin 1,500 MG/265 ML IV.SOLN IVPB SCH (18:00)
[2022-02-10] MEDS: Vancomycin 1,250 MG/262.5 ML IV.SOLN IVPB SCH (18:06)
[2022-02-11] MEDS: Piperacillin/Tazobactam 3.375 GM in 0.9 % Sodium Chloride Mini Bag 100 ML IVPB SCH (03:07)
[2022-02-11] MEDS: Vancomycin 1,250 MG/262.5 ML IV.SOLN IVPB SCH ×2 (06:38→18:15)
[2022-02-11] MEDS: *HR* Heparin 5,000 UNIT/ML VIAL SQ SCH ×2 (06:38→18:15)
[2022-02-11] MEDS: Ketorolac 30 MG/ML VIAL IVP PRN ×2 (06:38→18:14)
[2022-02-11] MEDS: Nicotine 21 MG PATCH.TD24 TD SCH (08:25)
[2022-02-11] MEDS: cloNIDine HCL 0.1 MG TABLET PO SCH (08:26)
[2022-02-11] MEDS: Gabapentin 300 MG CAPSULE PO SCH ×3 (08:26→18:15)
[2022-02-11] MEDS: hydrOXYzine pamoate 25 MG CAPSULE PO SCH (08:27)
[2022-02-11] MEDS: Sennosides/Docusate Sodium TABLET PO SCH (08:27)
[2022-02-11] MEDS: *HR* Buprenorphine HCl 2 MG SUBLINGUAL TABLET SL SCH (08:31)
[2022-02-11] MEDS: tiZANidine 4 MG TABLET PO PRN (14:43)
[2022-02-11 15:55] VITALS: BP 144/74; PULSE 65; TEMP 97.9; O2SAT 97
== END 2022-02-11 20:25 | disposition home or self-care (01) | DRG 710 ==
LOC: EMEROOARM 09:20 → 3ANU 09:20 → SUATTDRO 13:39 → 3ANU 15:08 → SUATTDRO 02-08 17:01
PROVIDERS: ADMIT Internal Medicine; ATTEND Family Medicine

== ENCOUNTER 2022-07-13 09:38 | Observation (INO) ==
[2022-07-13] MEDS ORDERED: *HR* Propofol 200 MG/20 ML VIAL IVP ONE (09:59)
[2022-07-13] MEDS ORDERED: *HR* FentaNYL (PF) 100 MCG/2 ML VIAL ONE (09:59)
[2022-07-13] MEDS ORDERED: Lidocaine -MPF 2% 5 ML VIAL ONE (10:00)
[2022-07-13] MEDS ORDERED: *HR* Rocuronium Bromide 50 MG/5 ML VIAL ONE (10:00)
[2022-07-13] MEDS ORDERED: Sugammadex Sodium 200 MG/2 ML VIAL IV ONE (10:00)
[2022-07-13] MEDS ORDERED: Ondansetron 4 MG/2 ML VIAL ONE (10:00)
[2022-07-13] MEDS ORDERED: *HR* Succinylcholine 200 MG/10 ML VIAL IVP ONE (10:00)
[2022-07-13] MEDS ORDERED: *HR* Remifentanil 2 MG VIAL IVP ONE (10:10)
[2022-07-13] MEDS ORDERED: CeFAZolin Syr 3,000MG/30 ML 3,000 MG/30 ML SYRINGE IVPB ONE (10:44)
[2022-07-13] MEDS ORDERED: Famotidine 20 MG/2 ML VIAL IVP ONE (10:45)
[2022-07-13] MEDS ORDERED: Gabapentin 300 MG CAPSULE PO ONE (10:45)
[2022-07-13] MEDS ORDERED: Ringers Solution, Lactated 1,000 ML IVC SCH ×2 (10:45→19:56)
[2022-07-13] MEDS ORDERED: tiZANidine 4 MG TABLET PO ONE (10:46)
[2022-07-13] MEDS ORDERED: Acetaminophen IV 1,000 MG/100 ML BAG IVPB ONE (10:47)
[2022-07-13] MEDS ORDERED: Vancomycin 1,000 MG VIAL ONE (10:58)
[2022-07-13] MEDS ORDERED: Ketamine HCL *QUVA* 50mg (1mL) SYRINGE ONE (11:19)
[2022-07-13] MEDS ORDERED: *HR* Vasopressin 20 UNIT/ML VIAL ONE (11:19)
[2022-07-13] MEDS ORDERED: *HR* Midazolam HCl 2 MG/2 ML VIAL ONE (11:28)
[2022-07-13] MEDS ORDERED: *HR* Remifentanil 1 MG VIAL IVP ONE ×2 (15:12→16:13)
[2022-07-13] MEDS ORDERED: *HR* HYDROMORPHONE 2 MG/ML VIAL ONE ×2 (15:19→17:27)
[2022-07-13] MEDS ORDERED: Albuterol 2.5 MG/3 ML NEBULIZER IH PRN (17:27)
[2022-07-13] MEDS: *HR* HYDROmorphone PF 0.5 MG/0.5 ML SYRINGE IVP PRN ×4 (17:43→18:44)
[2022-07-13] MEDS ORDERED: *HR* OxyCODONE Immed Rel 5 MG TABLET PO PRN (17:55)
[2022-07-13] MEDS ORDERED: Ketorolac 30 MG/ML VIAL IVP PRN (18:02)
[2022-07-13] MEDS ORDERED: Gabapentin 300 MG CAPSULE PO SCH (19:01)
[2022-07-13] MEDS ORDERED: tiZANidine 4 MG TABLET PO SCH (19:02)
[2022-07-13] MEDS ORDERED: *HR* HYDROmorphone PF 0.5 MG/0.5 ML SYRINGE IVP PRN (19:04)
[2022-07-13] MEDS ORDERED: Ondansetron ODT 4 MG TAB.RAPDIS PO PRN (19:56)
[2022-07-13] MEDS ORDERED: Ondansetron 4 MG/2 ML VIAL IVP PRN (19:56)
[2022-07-13] MEDS ORDERED: Naloxone 0.4 MG/ML INJ IVP PRN (19:56)
[2022-07-13] MEDS ORDERED: NON-FORMULARY MEDICATION 1 EACH EACH (Buprenorphine Hcl/Naloxone Hcl [Zubsolv 5.7-1.4 Mg T SL SCH (21:00)
[2022-07-13] MEDS: Azelastine 0.1% Nasal Spray 30 ML BOTTLE NS SCH (21:23)
[2022-07-13] MEDS: CeFAZolin 2 GM/120 ML BAG IVPB SCH (21:24)
[2022-07-13] MEDS: diazePAM 10 MG TABLET PO PRN (21:24)
[2022-07-13] MEDS: Nystatin SUSP 5 ML UD.LIQ PO SCH (21:35)
[2022-07-13] MEDS: methocarbamoL 750 MG TABLET PO SCH (22:23)
[2022-07-13] MEDS: Ketotifen Fumarate [Eye Itch Relief] 5 ML Drops OP SCH (22:23)
[2022-07-14] MEDS ORDERED: Ketorolac 30 MG/ML VIAL IVP SCH
[2022-07-14] MEDS: Ketorolac 30 MG/ML VIAL IVP SCH ×4 (01:10→16:48)
[2022-07-14] MEDS: Acetaminophen 325 MG TABLET PO PRN ×3 (01:11→20:34)
[2022-07-14] MEDS: *HR* OxyCODONE Immed Rel 5 MG TABLET PO PRN ×5 (01:11→18:02)
[2022-07-14] MEDS: CeFAZolin 2 GM/120 ML BAG IVPB SCH (05:08)
[2022-07-14] MEDS: tiZANidine 4 MG TABLET PO PRN ×2 (06:01→17:01)
[2022-07-14] MEDS: Loratadine 10 MG TABLET PO SCH (08:44)
[2022-07-14] MEDS: diazePAM 10 MG TABLET PO PRN ×2 (08:44→15:20)
[2022-07-14] MEDS: Furosemide 20 MG TABLET PO SCH (08:45)
[2022-07-14] MEDS: hydrOXYzine pamoate 25 MG CAPSULE PO SCH (08:45)
[2022-07-14] MEDS: Azelastine 0.1% Nasal Spray 30 ML BOTTLE NS SCH ×2 (08:45→20:35)
[2022-07-14] MEDS: Gabapentin 300 MG CAPSULE PO SCH ×4 (08:45→20:34)
[2022-07-14] MEDS: Nystatin SUSP 5 ML UD.LIQ PO SCH ×4 (08:46→20:36)
[2022-07-14] MEDS: Ketotifen Fumarate [Eye Itch Relief] 5 ML Drops OP SCH ×2 (08:46→20:36)
[2022-07-14] MEDS ORDERED: BUPRENORPHINE HCL SL SCH (09:00)
[2022-07-14] MEDS ORDERED: NALOXONE HCL SL SCH (09:00)
[2022-07-14] MEDS ORDERED: Loratadine 10 MG TABLET PO SCH (09:00)
[2022-07-14] MEDS: Tiotropium 10 INH DOSE IH SCH (10:15)
[2022-07-14] MEDS: methocarbamoL 750 MG TABLET PO SCH ×3 (10:38→20:39)
[2022-07-14] MEDS: Nicotine 2 MG GUM BC PRN ×3 (11:10→20:35)
[2022-07-14] MEDS: *HR* Buprenorphine HCl 8 MG TAB.SUBL SL SCH ×2 (13:52→20:33)
[2022-07-14] MEDS: Ipratropium/Albuterol Neb 3 ML IH PRN (16:56)
[2022-07-14] MEDS: polyethylene glycoL 3350 17 GM POWD.PACK PO PRN (20:33)
[2022-07-15] MEDS: *HR* OxyCODONE Immed Rel 5 MG TABLET PO PRN ×5 (00:13→20:50)
[2022-07-15] MEDS: Nicotine 2 MG GUM BC PRN ×8 (00:15→20:50)
[2022-07-15] MEDS: diazePAM 10 MG TABLET PO PRN ×3 (03:04→23:41)
[2022-07-15] MEDS: Acetaminophen 325 MG TABLET PO PRN ×3 (06:17→20:50)
[2022-07-15] MEDS: methocarbamoL 750 MG TABLET PO SCH ×3 (09:20→20:46)
[2022-07-15] MEDS: Gabapentin 300 MG CAPSULE PO SCH ×4 (09:25→20:46)
[2022-07-15] MEDS: hydrOXYzine pamoate 25 MG CAPSULE PO SCH (09:25)
[2022-07-15] MEDS: Loratadine 10 MG TABLET PO SCH (09:25)
[2022-07-15] MEDS: *HR* Buprenorphine HCl 8 MG TAB.SUBL SL SCH ×2 (09:26→20:45)
[2022-07-15] MEDS: Furosemide 20 MG TABLET PO SCH (09:27)
[2022-07-15] MEDS: Nystatin SUSP 5 ML UD.LIQ PO SCH ×4 (09:34→20:46)
[2022-07-15] MEDS: Azelastine 0.1% Nasal Spray 30 ML BOTTLE NS SCH ×2 (09:34→20:47)
[2022-07-15] MEDS: Ketotifen Fumarate [Eye Itch Relief] 5 ML Drops OP SCH (09:34)
[2022-07-15] MEDS: Tiotropium 10 INH DOSE IH SCH (10:44)
[2022-07-15] MEDS: Ipratropium/Albuterol Neb 3 ML IH PRN ×2 (14:15→22:11)
[2022-07-15] MEDS: polyethylene glycoL 3350 17 GM POWD.PACK PO PRN (20:48)
[2022-07-16] MEDS: Nicotine 2 MG GUM BC PRN ×3 (00:35→13:14)
[2022-07-16 03:08] VITALS: BP 111/76; PULSE 71; TEMP 98.3; O2SAT 95
[2022-07-16] MEDS: *HR* OxyCODONE Immed Rel 5 MG TABLET PO PRN ×2 (03:27→13:13)
[2022-07-16] MEDS: methocarbamoL 750 MG TABLET PO SCH ×2 (03:27→13:13)
[2022-07-16] MEDS: Acetaminophen 325 MG TABLET PO PRN (06:35)
[2022-07-16] MEDS: *HR* Buprenorphine HCl 8 MG TAB.SUBL SL SCH (09:14)
[2022-07-16] MEDS: Furosemide 20 MG TABLET PO SCH (09:14)
[2022-07-16] MEDS: Azelastine 0.1% Nasal Spray 30 ML BOTTLE NS SCH (09:15)
[2022-07-16] MEDS: Loratadine 10 MG TABLET PO SCH (09:15)
[2022-07-16] MEDS: hydrOXYzine pamoate 25 MG CAPSULE PO SCH (09:15)
[2022-07-16] MEDS: Gabapentin 300 MG CAPSULE PO SCH ×2 (09:15→13:13)
[2022-07-16] MEDS: Nystatin SUSP 5 ML UD.LIQ PO SCH ×2 (09:16→13:14)
[2022-07-16] MEDS: Tiotropium 10 INH DOSE IH SCH (10:30)
== END 2022-07-16 16:05 | disposition home health service (06) ==
LOC: 4WAOSI 09:38 → SDCAOSI 09:38 → 4WAOSI 19:46
PROVIDERS: ADMIT Orthopaedic Surgery Orthopaedic Surgery of the Spine; ATTEND Orthopaedic Surgery Orthopaedic Surgery of the Spine